=== PATIENT | female | born 1960 | race Caucasian/White ===

== ENCOUNTER 2021-10-30 14:51 | Outpatient (REF) | payer MEDICAID, SELFPAY ==
--- NOTE | ~2021-10-30 | US_ITS ---
EXAMINATION: US DIAGNOSTIC ULTRASOUND BREAST, RIGHT CLINICAL INFORMATION: Diffuse right breast pain. No palpable mass or discharge. Recent outside mammography at [facility], negative. Radiology department will attempt to retrieve outside mammography to allow for comparison in an addendum report. COMPARISON: None. TECHNIQUE: Ultrasound right breast is targeted to the areas of clinical concern with interrogation of the breast both medial and lateral sides. Patient is able to point to the area of concern at time of imaging. Grayscale imaging and color Doppler are performed without and with harmonics. FINDINGS: There is no focal suspicious finding. There is no cystic or solid mass, architectural abnormality, duct ectasia, or edema in the soft tissue planes. Results are discussed with the patient at time of visit. US/US breast RT limited IMPRESSION: Unremarkable right breast ultrasound. ASSESSMENT: BI-RADS 1: Negative RECOMMENDATION: 1. Patient's right mastodynia should managed based on the clinical impression. 2. Radiology department will attempt to retrieve prior outside mammography to allow for comparison. 3. Otherwise, routine annual screening mammography. This patient's information was entered into a reminder system with a target due date for their next mammogram.
== END 2021-10-30 14:52 | disposition home or self-care (01) ==
LOC: HO.MAMMO 14:51
PROVIDERS: Visit Provider Advanced Practice Midwife
DX: N64.4 Mastodynia (principal)
CPT/HCPCS: 76642

== ENCOUNTER 2021-11-02 14:42 | Outpatient (REF) | payer MEDICAID, SELFPAY ==
--- NOTE | ~2021-11-02 | MM_ITS ---
EXAMINATION: BONE DENSITOMETRY CLINICAL INDICATION: Menopause. COMPARISON: None (current study represents initial baseline exam). TECHNIQUE: Using a Adiana DXA System (software version: 13.1) manufactured by [employer], dual-energy x-ray absorptiometry was performed of the lumbar spine and left hip. The images are of good technical quality. Summary results are attached. FINDINGS: AP SPINE L1-L4: BMD 0.836 g/cm2, Z-score -1.4, T-score -2.9, osteoporosis. LEFT FEMUR, NECK: BMD 0.707 g/cm2, Z-score -0.9, T-score -2.4, osteopenia. LEFT FEMUR, TOTAL: BMD 0.744 g/cm2, Z-score -0.9, T-score -2.1, osteopenia. IDENTIFIED RISK FACTORS: Low calcium intake, menopause. HISTORY OF FRACTURE: None listed. MEDICATIONS: None listed. MM/XR DEXA axial skeleton IMPRESSION: 1. DIAGNOSIS: Osteoporosis based on the lowest T-score value of -2.9 in the lumbar spine applying World Health Organization criteria. 2. 10-YEAR FRACTURE RISK PREDICTION, FRAX: According to the guidelines, FRAX calculation should only be performed on patients in the osteopenia bone density category. Therefore, FRAX was not performed on this patient. 3. Treatment Recommendations: NOF guidelines recommend consideration for treatment in postmenopausal women and men age 50 and older presenting with the following: -A hip or vertebral (clinical or morphometric) fracture. -T-score less than or equal to -2.5 at the femoral neck or spine after appropriate evaluation to exclude secondary causes. -Low bone mass at the hip or spine and a 10-year fracture probability by FRAX of greater than or equal to 3% for hip fracture or greater than or equal to 20% for major osteoporotic fracture based on the [place] adapted WHO algorithm. 4. Other Recommendations: All treatment decisions require clinical judgment and consideration of individual patient factors, including patient preferences, comorbidities, previous drug use, risk factors not captured in the FRAX model (e.g. frailty, falls, vitamin D deficiency, increased bone turnover, interval significant decline in bone density) and possible under or overestimation of fracture risk by FRAX. Additional medical evaluation for secondary cause of low bone mineral density may be appropriate. FUTURE SCAN RECOMMENDATION: People with diagnosed cases of osteoporosis or at high risk for fracture should have regular bone mineral density tests. For patients eligible for Medicare, routine testing is allowed once every 2 years. The testing frequency can be increased to one year for patients who have rapidly progressing disease, those who are receiving or discontinuing medical therapy to restore bone mass, or have additional risk factors.
== END 2021-11-02 14:43 | disposition home or self-care (01) ==
LOC: HO.MAMMO 14:42
PROVIDERS: Visit Provider Advanced Practice Midwife
DX: Z13.820 Encounter for screening for osteoporosis (principal); Z78.0 Asymptomatic menopausal state
CPT/HCPCS: 77080

== ENCOUNTER 2024-03-01 11:25 | Outpatient (REF) | payer MEDICAID, SELFPAY ==
[2024-03-01 14:24] LABS: MANUAL DIFF FLAG NO
[2024-03-01 14:49] LABS: Basophils Absolute Auto 0.1 X10*3/uL (0.0-0.2); Basophils Percent Auto 1.3 % (0-2); Eosinophils Absolute Auto 0.1 X10*3/uL (0.0-0.4); Eosinophils Percent Auto 2.3 % (0-4); Hematocrit 40.6 % (37.0-47.0); Hemoglobin 13.4 g/dl (12.0-16.0); Imm Gran Abs Auto 0.02 X10*3/uL (0.00-0.03); Imm Gran Pct Auto 0.3 % (0.0-0.4); Lymphocytes Absolute Auto 1.9 X10*3/uL (1.2-4.9); Lymphocytes Percent Auto 31.8 % (20-40); Mean Corpuscular Hemoglobin 30.7 pg (27.0-33.0); Mean Corpuscular Volume 92.9 fL (80.0-98.0); Mean Platelet Volume 10.8 fL (9.4-12.3); Monocytes Absolute Auto 0.5 X10*3/uL (0.1-1.2); Monocytes Percent Auto 8.6 % (2-11); Neutrophils Absolute Auto 3.4 x10*3/uL (2.0-8.3); Neutrophils Percent Auto 55.7 % (45-73); Platelet Count 270 X10*3/uL (160-400); Red Blood Count 4.37 X10*6/uL (4.20-5.50); Red Cell Distribution Width 12.9 % (11.0-16.0); White Blood Count 6.1 X10*3/uL (4.8-10.8)
[2024-03-01 15:58] LABS: Alanine Aminotransferase 20 U/L (0-31); Anion Gap 11 (12-20); Aspartate Amino Transferase 33 U/L (5-31); Bilirubin Total 1.1 mg/dL (0.0-1.0); Blood Urea Nitrogen 15 mg/dL (9-16); Calcium 9.5 mg/dL (8.4-10.2); Carbon Dioxide 28 mmol/L (22-29); Chloride 104 mmol/L (96-108); Cholesterol 201 mg/dL (<200); Estimated Glomerular Filt Rate > 60; Glucose Random 81 mg/dL (60-115); HDL Cholesterol 62 mg/dL (>40); LDL Cholesterol Calculated 122 mg/dL (<100); Potassium 3.7 mmol/L (3.3-5.1); Sodium 139 mmol/L (135-145); Total Protein 7.4 g/dL (6.5-8.0); Triglycerides 88 mg/dL (<150)
[2024-03-01 16:19] LABS: Alkaline Phosphatase 58 U/L (39-117); TSH reflex Free T4 2.66 uIU/mL (0.32-4.0); Vitamin D 25-OH Total 105.8 ng/mL (>30)
== END 2024-03-01 11:26 | disposition home or self-care (01) ==
LOC: HO.CHCLDS 11:25
PROVIDERS: Visit Provider Family Medicine
DX: M81.0 Age-related osteoporosis without current pathological fracture (principal); E03.9 Hypothyroidism, unspecified
CPT/HCPCS: 36415; 80053; 80061; 82306; 84443; 85025

== ENCOUNTER 2024-06-08 15:02 | Outpatient (AMB) | payer OTHER, SELFPAY ==
--- NOTE | 2024-06-08 15:05 | A.OFFVIS_ITS ---
Vital Signs 06/08/24 15:09 Height 5 ft 5.63 in Weight 117 lb 15.157 oz BMI 19.3 BP 90/60 Blood Pressure Location Rt brachial Position Sitting Pulse 71 Pulse Source Pulse Oximeter Pulse Oximetry (%) 97 Oxygen Delivery Method Room Air Intake Visit Reasons: Osteoporosis, hypothyroidism Intake Note: New patient externally referred by PCP for Osteoporosis and Hypothyroidism. Allergies No Known Allergies Allergy (Verified 06/08/24 15:15) Medication List - Last Reconciled 06/08/24 by Ashutosh Villafuerte MD hydrocortisone 2.5% appl topical levothyroxine mcg PO lorazepam 1 mg PO DAILY PRN triamcinolone acetonide 0.1% topical DAILY HPI Comments Details: The patient is a 64-year-old female presenting with osteoporosis and hypothyroi dism. Osteoporosis was identified approximately ten years ago, evidenced by bone density studies indicating osteopenia. Treatment using both Fosamax and Risidronate was discontinued after musculoskeletal side effects developed. There is no history of adult fractures, but there is familial osteoporosis, which she queries. Her hypothyroidism has been stable, with regular assessments indicating appropriate control, although she reports concern over potential side effects and questions the necessity of continued treatment. First diagnosed in 10 yrs ago with osteopenia . Received treatment in the past with alendronate , from 2022 and risidronate for 2 mos . Not Tolerated treatment well became stiff No history of pathologic fracture or ONJ. - Fosamax (Alendronate): Taken two years ago for two months, discontinued due to stiffness and pain - Risidronate: Taken following Fosamax, for a similar duration, also discontinued due to adverse musculoskeletal effects Has several servings of dietary calcium per day in the form of cereal with milk, cheese, yogurt . Takes Calcium supplement mg daily in divided doses. Takes 1200 IU of Vitamin D daily. The patient consumes a varied diet including cereal with milk, cheese, frozen yogurt, ice cream, and mac and cheese. She takes juxf-rdn-tfsabcb calcium supplements but is informed that high-level dietary intakes may be adequate for her needs. Denies ever using PPI, anticoagulant, antiepileptic or glucocorticoid medication. Does weight bearing exercise 7 days per week in the form of shoulder exercises . - Resistance exercises performed daily for shoulder recovery Fracture history: N Height loss: N INSTRUMENTATION SPECIALIST history: Menarche at age 16 - Menopause at age 48 - nl Denies history of Kidney stones: Has family history of Osteoporosis and hip fracture in mother . UTD on dental cleanings and sees dentist every 6 months. No planned upcoming dental work or extractions. No heavy ETOH use or tabacco use DXA dated 11/02/21 : FINDINGS: AP SPINE L1-L4: BMD 0.836 g/cm2, Z-score -1.4, T-score -2.9, osteoporosis. LEFT FEMUR, NECK: BMD 0.707 g/cm2, Z-score -0.9, T-score -2.4, osteopenia. LEFT FEMUR, TOTAL: BMD 0.744 g/cm2, Z-score -0.9, T-score -2.1, osteopenia. IDENTIFIED RISK FACTORS: Low calcium intake, menopause. HISTORY OF FRACTURE: None listed. MEDICATIONS: None listed. MM/XR DEXA axial skeleton IMPRESSION: 1. DIAGNOSIS: Osteoporosis based on the lowest T-score value of -2.9 in the lumbar spine applying World Health Organization criteria. Labs:T score of -2.6 in LS - Bone density study, 2024: T-score of -2.6, indicating osteoporsis, possibly improved in a different location but cannot compare due to different machines - TSH level: 2.66 (normal) [facility] Medical History (Updated 06/08/24 @ 15:12 by Ashutosh Villafuerte MD) Hypothyroidism Osteoporosis Surgical History (Updated 06/08/24 @ 15:11 by Juani Leyva CMA) H/O repair of right rotator cuff Physical Exam Vital Signs: Last Vital Signs Pulse 71 06/08/24 15:09 BP 90/60 06/08/24 15:09 Pulse Ox 97 06/08/24 15:09 Oxygen Delivery Method Room Air 06/08/24 15:09 BMI result Body Mass Index 19.3 There are no Cushingoid features. Absence of blue sclera. Absence of kyphosis. Thyroid gland is of nl size and weighs 15 gms. There are no thyroid nodules palpated. Lungs CTA. Heart S1 S2 Reg R/R Abdominal exam benign. Muscle strength 5/5 . Examination of spine reveals absence of tenderness on palpation Assessment & Plan Assessment & Plan (1) Osteoporosis: Code(s): M81.0 - Age-related osteoporosis without current pathological fracture Category: Medical Plan: This is a 64-year-old white female with a history of osteoporosis with partial secondary workup. Found to have a high 25 hydroxy vitamin-D level Plan is to complete the secondary workup by checking a phosphorus, SPEP, urine immunofixation, 24 hour urine for calcium and creatinine. Will ensure 1200 mg of calcium and hold vitamin-D supplementation reassessing 25 hydroxy vitamin-D in 2 months. Assuming secondary workup is negative considering patient's age and high risk of fracture, would consider treatment with anabolic initially like Tymlos or Forteo proceeded by an anti resorptive. 1. Osteoporosis I will continue to monitor the patient?s osteoporosis, emphasizing nonpharmacologic strategies such as dietary calcium. Further diagnostics will aid an evidence-based management plan as above . I discussed the past and current management strategies with the patient for osteoporosis and hypothyroidism. We reviewed potential side effects and the need for reassessment of her bone health status, including a calcium metabolism study. I also covered the temporary discontinuation of thyroid therapy to assess its necessity, explaining the need for monitoring thyroid levels and symptoms. Risk versus benefit analysis of stopping or continuing treatment was elaborated, and patient education about follow-up plans was provided. The patient had an opportunity to ask questions regarding treatment plan. The patient expressed understanding and agreement with the above treatment plan. Patient was informed and verbally consented to the use of an ambient scribe for clinic note documentation during this visit. (2) Hypothyroidism: Code(s): E03.9 - Hypothyroidism, unspecified Category: Medical Plan: Appears to be clinically and biochemically euthyroid on 62.5 ug of L-T4 2. Hypothyroidism We will evaluate the necessity of ongoing levothyroxine therapy by clinical and laboratory . Will have patient hold her levothyroxine and recheck TSH, free T4 and anti-peroxidase antibodies in 6 weeks time. Did tell patient should become symptomatic to check the thyroid function studies earlier Orders: Orders Phosphorus 2 Months M81.0 - Age-related osteoporosis without current pathological fracture Protein Electrophoresis, Serum 2 Months M81.0 - Age-related osteoporosis without current pathological fracture Immunofixation, Random Urine 2 Months M81.0 - Age-related osteoporosis without current pathological fracture Vitamin D 25-OH Total 2 Months M81.0 - Age-related osteoporosis without current pathological fracture Thyroid Stimulating Hormone 2 Months E03.9 - Hypothyroidism, unspecified Calcium, 24 Hr Ur 2 Months M81.0 - Age-related osteoporosis without current pathological fracture Creatinine, 24 Hr Group 2 Months M81.0 - Age-related osteoporosis without current pathological fracture Free T4 (Free Thyroxine) 2 Months E03.9 - Hypothyroidism, unspecified Thyroid Peroxidase Antibodies 2 Months E03.9 - Hypothyroidism, unspecified Coding Level of Care Code New Pt Level 4 (66493) Diagnoses Osteoporosis M81.0 Hypothyroidism E03.9
[2024-06-08 15:09] VITALS: BP 90/60; PULSE 71; O2SAT 97; BMI 19.3
--- OUTSIDE RECORDS SUMMARY | 2024-06-08 18:21 | XMS_ITS | Encounter Summary ---
Author Organization [employer] Address [address] [facility] [address] [place] [address] Care Team Providers Care Rug Underlay Machine Operator Name Role Phone Blanca Olmstead MD Primary Care Provider [phone] Encounter Details Date Type Department Care Team ([facility] st Contact Info) Description 01/20/2024 Orders Only [facility] CHC MED & PEDS [address] [place] [address] Jennifer Alejandro MD [address] [place] [address] Inverse psoriasis (Primary Dx) Social History Tobacco Use Types Packs/Day Years Used Date Smoking Tobacco: Never Smokeless Tobacco: Never Alcohol Use Standard Drinks/Week Comments Never 0 (1 standard drink = 0.6 oz pur e alcohol) Depression Answer Date Recorded Patient Health Questionnaire-9 Score 0 06/07/2022 Housing Stability Answer Date Recorded What is your housing situation today? I have doreen vargas 12/09/[address] you li ve. Do you have problems with any of the following? None of the above 12/09/2022 Food Insecurity Answer Date Recorded Within the past 12 months, y ou worried that your food would run out before you got money to buy more: Never True 12/09/2022 Within the past 12 months,th e food you bought just didn't last and you didn't have enough money to get more: Never True Transportation Answer Date Recorded In the past 12 months, has l ack of transportation kept you from medical appts, meetings, work or from getting things needed for daily living? No 12/09/2022 Utilities Answer Date Recorded In the past 12 months, has t he electric, gas, oil or water company threatened to shut off services in your home? No 12/09/2022 Depression Answer Date Recorded Patient Health Questionnaire-2 Score 0 06/07/2022 Comments Unknown Sex and Gender Information Value Date Recorded Sex Assigned at Female 12/24/2021 10:40 AM EDT Legal Sex Female 10:40 AM EDT Gender Identity Female 12/24/2021 10:40 AM EDT Sexual Orientation Straight 12/24/2021 10 :40 AM EDT documented as of this encounter Plan of Treatment Not on file documented as of this encounter Visit Diagnoses Diagnosis Inverse psoriasis- Primary Other psoriasis documented in this encounter Additional Health Concerns Assessment Noted Time PHQ-9 Depression Total Score: 0 06/08/19 23 2:30 PM EDT documented as of this encounter Care Teams Rug Underlay Machine Operator Relationship Specialty Start Date End Date Blanca Olmstead MD [address] [place] [id number] PCP - General Family Medicine 08/29/21 documented as of this encounter
--- OUTSIDE RECORDS SUMMARY | 2024-06-08 18:21 | XMS_ITS | Encounter Summary ---
Author Organization [employer] Address [address] [facility] [address] [place] [address] Care Team Providers Care Steam Conditioning Operator Name Role Phone Blanca Olmstead MD Primary Care Provider [phone] Reason for Visit * Reason Onset Date Comments Med Refill 10/31/2022 Encounter Details Date Type Department Care Team ([facility] st Contact Info) Description 10/31/2022 Telephone [facility] CHC MED & PEDS [address] [place] [address] Blanca Olmstead MD [address] [place] [address] Med Refill Social History Tobacco Use Types Packs/Day Years Used Date Smoking Tobacco: Never Smokeless Tobacco: Never Alcohol Use Standard Drinks/Week Comments Never 0 (1 standard drink = 0.6 oz pur e alcohol) Depression Answer Date Recorded Patient Health Questionnaire-9 Score 0 06/07/2022 Depression Answer Date Recorded Patient Health Questionnaire-2 Score 0 06/07/2022 Comments Unknown Sex and Gender Information Value Date Recorded Sex Assigned at Female 12/24/2021 10:40 AM EDT Legal Sex Female 10:40 AM EDT Gender Identity Female 12/24/2021 10:40 AM EDT Sexual Orientation Straight 12/24/2021 10 :40 AM EDT documented as of this encounter Miscellaneous Notes * Telephone Encounter - Lacy Davalos LPN - 10/31/2022 9:51 AM EDT Medication was sent to [id number] on 09/30/22 #45 with 1 refill. * Telephone Encounter - Alexandra Jeremias - 10/31/2022 9:39 AM EDT Tc from pt requesting medication refill on levothyroxine (Synthroid, Levoxyl) 125 MCG tablet documented in this encounter Plan of Treatment Not on file documented as of this encounter Visit Diagnoses Not on filedocumented in this encounter Additional Health Concerns Assessment Noted Time PHQ-9 Depression Total Score: 0 06/08/19 23 2:30 PM EDT documented as of this encounter Care Teams Steam Conditioning Operator Relationship Specialty Start Date End Date Blanca Olmstead MD [address] [place] [address] PCP - General Family Medicine 08/29/21 documented as of this encounter
--- OUTSIDE RECORDS SUMMARY | 2024-06-08 18:21 | XMS_ITS | Encounter Summary ---
Author Organization [employer] Address [address] [facility] [address] [place] [address] Care Team Providers Care Finished Cloth Examiner Name Role Phone Blanca Olmstead MD Primary Care Provider [phone] Reason for Visit * Reason Onset Date Comments Appointment Request 07/16/2023 Encounter Details Date Type Department Care Team ([facility] st Contact Info) Description 07/16/2023 Telephone [facility] MEDICINE [address] [place] [address] Blanca Olmstead MD [address] [place] [address] Appointment Request Social History Tobacco Use Types Packs/Day Years [...] encounter Miscellaneous Notes * Telephone Encounter - Nichole Painting - 07/16/2023 12:06 PM EDT Tc from pt requesting Derm F/U appt documented in this encounter Plan of Treatment Not on file documented as of this encounter Visit Diagnoses Not on filedocumented in this encounter Additional Health Concerns Assessment Noted Time PHQ-9 Depression Total Score: 0 06/08/19 23 2:30 PM EDT documented as of this encounter Care Teams Finished Cloth Examiner Relationship Specialty Start Date End Date Blanca Olmstead MD [address] [place] [address] PCP - General Family Medicine 08/29/21 documented as of this encounter
--- OUTSIDE RECORDS SUMMARY | 2024-06-08 18:21 | XMS_ITS | Encounter Summary ---
Author Organization [employer] Address [address] [facility] [address] [place] [address] Care Team Providers Care Wool Scourer Name Role Phone Blanca Olmstead MD Primary Care Provider Reason for Visit * Reason Onset Date Comments Triage 07/24/2022 Encounter Details Date Type Department Care Team ([facility] st Contact Info) Description 07/24/2022 Telephone [facility] CHC MED & PEDS [address] [place] [address] Blanca Olmstead MD [address] [place] [address] Triage Social History Tobacco Use Types Packs/Day Years [...] Orientation Straight 12/24/2021 10 :40 AM EDT COVID-19 Exposure Response Date Recorded In the last 10 days, have yo u been in contact with someone who was confirmed or suspected to have Coronavirus/COVID-19? No / Unsure 07/16/2022 10:20 AM EDT documented as of this encounter Miscellaneous Notes * Telephone Encounter - Rhina Croft RN - 07/24/2022 9:43 AM EDT Triage call Pt reports concern that medication, aldendronate, fosamax 70mg could be causing some joint, muscle soreness. Pt reports that exercising has increased lately and thought that this could becausing this soreness. Pt at a certain point felt that it wasn't the physical activity due to the depth of joint pain experienced. Pt did google side effects of medication and believes this could be side effect from this medication. Pt is offered apt but, has to go to today and is leaving tomorrow out of town. Pt then will be gone for 6 weeks. Tele visit with Dr. Smallwood today at 330pm. Pt agreed with this disposition . Pt advised to continue medication until provider says otherwise. Protocol Used: Medication Question Call (Adult) Protocol-Based Disposition: Callback or Video Visit by PCP Today Video visit offered and caller accepted Positive Triage Question: * Caller has NON-URGENT medicine question about med that PCP or specialist prescribed and triager unable to answer question * All higher-acuity triage questions were negative Care Advice Discussed: * Reasons To Call Back - You have any more questions - You become worse * Telephone Encounter - Christina Vicente - 07/24/2022 9:23 AM EDT Symptom: Medication Reaction (alendronate (Fosamax) 70 MG tablet) Outcome: Schedule an urgent appointment (within 1 hour) or talk to a nurse or provider soon Reason: Caller denied all higher acuity questions The caller accepted this outcome documented in this encounter Plan of Treatment Not on file documented as of this encounter Visit Diagnoses Not on filedocumented in this encounter Additional Health Concerns Assessment Noted Time PHQ-9 Depression Total Score: 0 06/08/19 23 2:30 PM EDT documented as of this encounter Care Teams Wool Scourer Relationship Specialty Start Date End Date Blanca Olmstead MD [address] [place] [id number] PCP - General Family Medicine 08/29/21 documented as of this encounter
--- OUTSIDE RECORDS SUMMARY | 2024-06-08 18:21 | XMS_ITS | Encounter Summary ---
Author Organization [facility] [employer] Address [address] [facility] [address] [place] [address] Care Team Providers Care Canoe Inspector Name Role Phone Blanca Olmstead MD Primary Care Provider [phone] Encounter Details Date Type Department Care Team ([facility] st Contact Info) Description 04/08/2024 Orders Only [facility] MEDICINE [address] [place], [place] [id number] Dea Gilliam MD [address] [place] [address] Impingement syndrome of right shoulder region (Primary Dx); Pain in joint of right shoulder Social History Tobacco Use Types Packs/Day Years Used Date Smoking Tobacco: Never Smokeless Tobacco: Never Alcohol Use Standard Drinks/Week Comments Never 0 (1 standard drink = 0.6 oz pur e alcohol) Depression Answer Date Recorded Patient Health Questionnaire-9 Score 9 03/01/2024 Patient Health Questionnaire-9 Score 9 03/01/2024 Last PHQ-9: Questionnaire Data Not on file 0 03/01/2024 Housing Stability Answer Date Recorded What is your housing situation today? I have doreeneder vargas 12/09/[address] you [...] Answer Date Recorded Patient Health Questionnaire-2 Score 4 03/01/2024 Comments Unknown Sex and Gender Information Value Date Recorded Sex Assigned at Female 12/24/2021 10:40 AM EDT Legal Sex Female 10:40 AM EDT Gender Identity Female 12/24/2021 10:40 AM EDT Sexual Orientation Straight 12/24/2021 10 :40 AM EDT documented as of this encounter Plan of Treatment Scheduled Orders Name Type Priority Associated Diagnoses Orde r Schedule XR Shoulder 2+ Views Right Imaging Routine Impingement syndrome of right shoulder region Pain in joint of right shoulder Expected: 04/08/2024, Expires: 04/08/2025 documented as of this encounter Visit Diagnoses Diagnosis Impingement syndrome of right shoulder region- Primary Pain in joint of right shoulder documented in this encounter Additional Health Concerns Assessment Noted Time PHQ-9 Depression Total Score: 9 03/01/19 25 10:56 AM EST documented as of this encounter Care Teams Canoe Inspector Relationship Specialty Start Date End Date Blanca Olmstead MD [address] [place] [address] PCP - General Family Medicine 08/29/21 documented as of this encounter
--- OUTSIDE RECORDS SUMMARY | 2024-06-08 18:21 | XMS_ITS | Data Portability ---
Author Organization LARON Bernardo Suarez [facility], [facility] Address [address] [place] [address] Care Team Providers Care Coach Name Role Phone [facility] Primary Care Provider [phone] Assessment Encounter Date Assessment Date Assessment LastModified by Organization Details LastModified Time 03/30/2024 03/30/2024 A: improved tolerance with AA/PROM's and strengthening ex's. ROM gains since recent cortisone injection. P: Cont to progress per POC as tolerated Not available 03/30/2024 18:31:49 04/02/2024 04/02/2024 A: Pt cont with slightly improved yimi to therex and improved end range flex/er P: Cont to progress per POC as tolerated [email or web address] Not available 04/02/2024 15:48:15 04/06/2024 04/06/2024 A: Cont fatigue with therex noted, however able to complete reps. P: Cont to progress per POC as tolerated [email or web address] Not available 04/06/2024 13:55:47 04/08/2024 04/08/2024 A: improved ROM overall, and decreased subjective pain c/o's. improved ADL function and function mobility. fatigue at end of visit. P: pt leaving for [place] for vacation and will continue with HEP and f/u with MD when returns. Not available 04/08/2024 16:11:11 06/01/2024 06/01/2024 Reason for Visit: 7 months status post right shoulder rotator cuff repair HPI: The patient is a 64-year-old female now 7 months status post right shoulder arthroscopic rotator cuff repair of the supraspinatus, arthroscopic distal clavicle excision, arthroscopic biceps tenodesis, extensive debridement and subacromial decompression with partial acromioplasty performed on 11/10/2023. She did have pain and stiffness issues postoperative day, however, has made substantial improvement. Her pain is minimal at this time and she continues to work on range of motion. Her biggest complaint is actually chronic dry mouth since her surgery. Past medical, surgical, family and social history; Medications, Allergies and 12-point review of systems have been reviewed, updated and charted. Physical Examination: Height and weight as noted in chart. Constitutional: Patient pleasant, well appearing and in NAD. Mental status: Patient is alert and oriented x 4. No short-term memory deficits. Psychiatric: Mood and affect are appropriate. Respiratory: Non-labored breathing. Musculoskeletal: On examination of the right shoulder, she demonstrates active shoulder elevation 160? ? ? and external rotation to 45? ? ?. 5/5 strength in rotator cuff testing. Impression and Plan: 64-year-old female now 7 months status post right shoulder arthroscopic rotator cuff repair of the supraspinatus, arthroscopic distal clavicle excision, arthroscopic biceps tenodesis, extensive debridement and subacromial decompression with partial acromioplasty performed on 11/10/2023. She did have pain and stiffness issues postoperative day, however, has made substantial improvement. Her pain is minimal at this time and she continues to work on range of motion. Her biggest complaint is actually chronic dry mouth since her surgery. I want her to continue working on range of motion and did explain to her that she will likely see improvements in overall range of motion and function up to 1 year postop. Regarding her chronic dry mouth, I am referring her over to RN PACU anesthesia to have this evaluated further and again the recommendations, which the patient requested. I also recommend that she schedule a visit with her PCP in these regards. At this point, I am happy to see her back as needed. All questions and concerns were addressed. I recommended good lifting mechanics moving forward indefinitely. [email or web address] Not available 06/01/2024 10:54:54 Plan of Treatment Reminders Order Date Submit Date Provider Last Modified By Organization Details Last Modified Time Details Appointments None record ed. Lab None record ed. Referral None record ed. Procedures None record ed. Surgeries None record ed. Imaging None record ed. Medication Orders None record ed. Patient TargetsNo targets recorded. Patient InstructionsNo instructions recorded. Reason for Referral None Reported. Problems Name Problem SNOMED Code Status Onset Date Resolution Date Notes Provider Name and Address Organization Details Recorded Time Pain of right shoulder joint 5421720049475 9100 Active 2023 aldair day kajal [facility] 5 10:56:25 Impingement syndrome of right shoulder region 8780037818520 02 Active [facility] 4 10:48:49 Problem Notes None recorded. Procedures Surgical History Date Name Laterality Status Provider Name and Address Organization Details Recorded Time 4 17458 Therapeutic Exercise (1:1) completed Aida Olivas, AMMONIA REFRIGERATION TECHNICIAN [address], [place], [address], [facility] 12/09/2023 15:39:25 4 13538: Hot or Cold Pack completed Aida Olivas, AMMONIA REFRIGERATION TECHNICIAN [address], [place], [address], [facility] 12/09/2023 15:39:25 4 44695: Manual therapy completed Aida Olivas, AMMONIA REFRIGERATION TECHNICIAN [address], [place], [address], [facility] 12/09/2023 15:39:26 4 87042 Therapeutic Exercise (1:1) completed Socorro Gómez, PT [address], [place], [address], [facility] 12/04/2023 16:11:57 4 13297: Hot or Cold Pack completed Socorro Gómez, PT [address], [place], [address], [facility] 12/04/2023 16:11:57 4 80820: Manual therapy completed Socorro Gómez, PT [address], [place], [address], [facility] 12/04/2023 16:11:57 4 96920 Therapeutic Exercise (1:1) completed Socorro Gómez, PT [address], [place], [address], [facility] 12/02/2023 16:05:20 4 79690: Hot or Cold Pack completed Socorro Pollouie, PT [address], [place], [address], [facility] 12/02/2023 16:05:20 4 98102: Manual therapy completed Socorro Pollouie, PT [address], [place], [address], [facility] 12/02/2023 16:05:20 4 88866 Therapeutic Exercise (1:1) completed Socorro Gómez, PT [address], [place], [address], [facility] 11/27/2023 15:22:41 4 55943: Hot or Cold Pack completed Socorro Gómez, PT [address], [place], [address], [facility] 11/27/2023 15:33:58 4 85466: Manual therapy completed Socorro Gómez, PT [address], [place], [address], [facility] 11/27/2023 15:33:45 4 75081 Therapeutic Exercise (1:1) completed Socorro Gómez, PT [address], [place], [address], [facility] 11/24/2023 11:52:15 4 38630: Low complexity PT Eval completed Socorro Gómez, PT [address], [place], [address], [facility] 11/24/2023 11:52:17 4 80167 Therapeutic Exercise (1:1) completed Socorro Pollouie, PT [address], [place], [address], [facility] 10/09/2023 16:48:25 4 62265: Manual therapy completed Socorro Gómez, PT [address], [place], [address], [facility] 10/09/2023 16:48:25 4 08941 Therapeutic Exercise (1:1) completed Socorro Gómez, PT [address], [place], [address], [facility] 10/07/2023 16:54:41 4 30875: Manual therapy completed Socorro Gómez, PT [address], [place], [address], [facility] 10/07/2023 16:54:41 4 19224 Therapeutic Exercise (1:1) completed Socorro Gómez, PT [address], [place], [address], [facility] 10/02/2023 16:30:54 4 06829: Manual therapy completed Socorro Gómez, PT [address], [place], [address], [facility] 10/02/2023 16:30:54 4 46505 Therapeutic Exercise (1:1) completed Socorro Pollouie, PT [address], [place], [address], [facility] 09/25/2023 16:22:26 4 59916: Manual therapy completed Socorro Pollouie, PT [address], [place], [address], [facility] 09/25/2023 16:22:26 4 33852 Therapeutic Exercise (1:1) completed Aida Brendon, AMMONIA REFRIGERATION TECHNICIAN [address], [place], [address], [facility] 09/23/2023 17:10:25 4 79011: Manual therapy completed Aida Olivas, AMMONIA REFRIGERATION TECHNICIAN [address], [place], [address], [facility] 09/23/2023 17:10:32 4 85208 Therapeutic Exercise (1:1) completed Socorro Gómez, PT [address], [place], [address], [facility] 09/18/2023 13:55:00 4 75233: Low complexity PT Eval completed Socorro Gómez, PT [address], [place], [address], [facility] 09/18/2023 13:55:04 4 Sports Shoulder completed Augustina Villalobos PA-C [address], [place], [address], [facility] 06/23/2023 12:50:55 Imaging Results None recorded. Procedure Notes None recorded. Medical Equipment None Reported. Allergies No known drug allergies Medications Name Sig Start Date Stop Date Status Note LastModified by Organization Details LastModified Time meloxicam 15 mg tablet TAKE 1 TABLET EVERY DAY BY ORAL ROUTE WITH MEAL(S) FOR 30 DAYS. 10/08 completed Not Available Not Available Not Available ondansetron HCl 4 mg tablet TAKE 1 TABLET EVERY 6-8 HOURS BY ORAL ROUTE NEEDED, FOR NAUSEA. active Not Available Not Available No t Available aspirin 81 mg tablet,silvio yed release TAKE 1 TABLET(S) EVERY DAY BY ORAL ROUTE BEGINNING THE DAY AFTER SURGERY. TAKE WITH FOOD. active Not Available Not Available No t Available lorazepam 0.5 mg tablet Take one tab 30 minutes prior to MRI and second tab at time of MRI as needed for anxiety 10/08 completed Not Available Not Available Not Available levothyroxi ne 125 mcg tablet TAKE 1/2 TABLET BY MOUTH ONCE DAILY *TAKE 30 MINUTES BEFORE BREAKFAST * active Not Available Not Available No t Available triamcinolo ne acetonide 0.1 % topical ointment active Not Available Not Available Not Available hydrocortis one 2.5 % topical cream active Not Available Not Available Not Available lorazepam 1 mg tablet active Not Available Not Available No t Available methylpredn isolone 4 mg tablets in a dose pack TAKE 6 TABLETS ON DAY 1 DIRECTED ON PACKAGE AND DECREASE BY 1 TAB EACH DAY FOR A TOTAL OF 6 DAYS active Not Available Not Available No t Available naproxen 500 mg tablet TAKE 1 TABLET(S) 2 TIMES A DAY BY ORAL ROUTE FOR 5 DAYS. TAKE WITH FOOD. active Not Available Not Available No t Available calcipotrie ne 0.005 % topical ointment APPLY TO THE AFFECTED AREA(S) TWICE DAILY active Not Available Not Available No t Available oxycodone 5 mg tablet TAKE 1 TABLET BY MOUTH EVERY 4 HOURS NEEDED FOR PAIN active Not Available Not Available No t Available Vitals Date Recorded Body height Body mass index (BMI) Body weight Provider Name and Address Organization Details Last Updated DateTime 06/01/2024 162.56 cm 20.6 kg/m2 25471.08 g EDUARD CRUZ [facility] 06/01/2024 10:38:06 Social History Question Answer Notes LastModified by NearVerse[employer] ion Details LastModified Time Tobacco Smoking Status Never Smoker EDUARD CRUZ [facility] 10/14/2023 15:52:21 How Many Times Per Week Do You Consume Alcohol? Less Than 1 Time Per Week [email or web address] Information not available 10/14/2023 Do You Or Have You Ever Used E-cigarettes Or Vape? Never Used Electronic Cigarettes [email or web address] Information not available 10/14/2023 Which Of Your Hands Is Dominant? Right [email or web address] Information not available 11/26/2023 What Is Your Relationship Status? Single [email or web address] Information not available 10/14/2023 Do You Use Any Illicit Or Recreational Drugs? No [email or web address] Information not available 10/14/2023 Do You Or Have You Ever Used Any Other Forms Of Tobacco Or Nicotine? No [email or web address] Information not available 10/14/2023 Sex: Unknown Functional Status None recorded. Mental Status None recorded. Family History Nothing Reported. Medical History Condition Response Thyroid Problems Y Asthma Y Gynecological HistoryNo gynecological history recorded. Obstetrics History GPAL:G 0 P 0 0 0 0 Past Encounters Encounter ID Performer Location Encounter Start Date Encounter Closed Date Diagnosis/Indication Diagnosis SNOMED-CT Code Diagnosis ICD10 Code Diagnosis Note [id number] Augustina Villalobos PA-C [facility] [address] [place] [address] 06/23/2023 09:54:12 07/11/2023 05:59:50 Pain of right shoulder joint 1373693375 5171550 M25.511 Impingemen t syndrome of right shoulder region 8012226462 09078 M75.41 [id number] Augustina Villalobos PA-C [facility] [address] [place] [address] 09/02/2023 15:34:12 09/22/2023 09:04:41 Anterior to posterior tear of superior glenoid labrum of right shoulder 0081017137 4381500 S43.431A Impingemen t syndrome of right shoulder region 0544020301 52922 M75.41 [id number] Socorro Gómez, PT [facility] [address] [place] [address] 09/18/2023 11:45:52 09/18/2023 13:03:54 Anterior to posterior tear of superior glenoid labrum of right shoulder 0039292656 0236068 S43.431D [id number] Socorro Gómez PT [facility] [address] [place] [address] 09/23/2023 16:25:27 09/23/2023 17:24:17 Anterior to posterior tear of superior glenoid labrum of right shoulder 8861958083 6018991 S43.431D [id number] Socorro Gómez, PT [facility] [address] [place] [address] 09/25/2023 16:14:13 09/25/2023 17:33:15 Anterior to posterior tear of superior glenoid labrum of right shoulder 5412880628 8501852 S43.431D [id number] Socorro Gómez PT [facility] [place] [address] 10/02/2023 16:16:26 10/02/2023 17:21:13 Anterior to posterior tear of superior glenoid labrum of right shoulder 9309672916 9907000 S43.431D [id number] [facility] [address] [place] [address] 10/07/2023 16:14:49 10/07/2023 18:06:29 Anterior to posterior tear of superior glenoid labrum of right shoulder 5187520652 9309473 S43.431D [id number] Socorro Gómez PT [facility] [address] [place] [address] 10/09/2023 16:13:26 10/09/2023 17:25:28 Anterior to posterior tear of superior glenoid labrum of right shoulder 1041777223 7937062 S43.431D [id number] MD [facility] [address] [place] [address] 10/14/2023 15:46:34 11/11/2023 09:14:26 Rupture of rotator cuff of right shoulder 4371580002 6571702 M75.101 Partial th ickness rotator cuff tear 731808180 M75.101 Impingemen t syndrome of right shoulder region 4785892723 44576 M75.41 [id number] [facility] [address] [place] [address] 11/24/2023 09:51:51 11/24/2023 10:57:45 Rupture of rotator cuff of right shoulder 2609211441 9479772 M75.863 [id number] TOOTIE Mckenna [address] floor [address] [facility] [address] 11/26/2023 12:56:46 12/11/2023 14:38:53 Postoperative care 220378206 Z48.89 [id number] Socorro Gómez PT [facility] [address] [place] [address] 11/27/2023 15:18:10 11/27/2023 16:30:23 Rupture of rotator cuff of right shoulder 2157313640 6345644 M75.268 [id number] Socorro Gómez PT [facility] [address] [place] [address] 12/02/2023 15:56:11 12/02/2023 16:40:50 Rupture of rotator cuff of right shoulder 2494968453 5669819 M75.527 [id number] Socorro Gómez PT [facility] [address] [place] [address] 12/04/2023 15:49:51 12/04/2023 16:47:43 Rupture of rotator cuff of right shoulder 6098082234 [id number] M75.779 [id number] Socorro Gómez PT [facility] [address] [place] [address] 12/09/2023 15:53:02 12/09/2023 16:53:13 Rupture of rotator cuff of right shoulder 1193781295 6214219 M75.384 [id number] Socorro Gómez PT [facility] [address] [place] [address] 12/11/2023 15:46:55 12/11/2023 16:46:26 Rupture of rotator cuff of right shoulder 9007608100 4880200 M75.136 [id number] Socorro Gómez PT [facility] [address] [place] [address] 12/16/2023 15:53:25 12/16/2023 17:09:07 Rupture of rotator cuff of right shoulder 8471688535 [id number] M75.652 [id number] Socorro Gómez PT [facility] [address] [place] [address] 12/18/2023 15:45:35 12/18/2023 16:52:32 Rupture of rotator cuff of right shoulder 8225664377 5726483 M75.219 [id number] Socorro Gómez PT [facility] [address] [place] [address] 12/23/2023 15:52:43 12/23/2023 17:01:26 Rupture of rotator cuff of right shoulder 9103485923 [id number] M75.429 [id number] Socorro Gómez PT [facility] [address] [place] [address] 12/25/2023 15:49:26 12/25/2023 17:05:58 Rupture of rotator cuff of right shoulder 4582190692 [id number] M75.472 [id number] Socorro Gómez PT [facility] [address] [place] [address] 12/30/2023 15:48:13 12/30/2023 16:41:08 Rupture of rotator cuff of right shoulder 9384229349 [id number] M75.689 [id number] Socorro Gómez, PT [facility] [address] [place] [address] 01/01/2024 15:53:52 01/01/2024 17:12:27 Rupture of rotator cuff of right shoulder 0897093617 [id number] M75.318 [id number] Socorro Gómez, PT [facility] [address] [place] [address] 01/06/2024 15:51:23 01/06/2024 17:10:13 Rupture of rotator cuff of right shoulder 6236935301 [id number] M75.900 [id number] Socorro Gómez PT [facility] [address] [place] [address] 01/08/2024 15:48:00 01/08/2024 17:07:22 Rupture of rotator cuff of right shoulder 3109395997 [id number] M75.572 [id number] Socorro Gómez PT [facility] [address] [place] [address] 01/13/2024 15:50:26 01/13/2024 16:56:57 Rupture of rotator cuff of right shoulder 4478635956 4094493 M75.724 [id number] Alexx Berry MD [address] [place] [address] 01/15/2024 12:56:25 02/11/2024 08:26:50 Full thickness rotator cuff tear 220095075 M75.121 Surgical follow-up 95204 4000 Z48.89 [id number] Socorro Gómez, PT [facility] [address] [place] [address] 01/15/2024 15:51:21 01/15/2024 17:04:18 Rupture of rotator cuff of right shoulder 3229440144 [id number] M75.498 [id number] Socorro Gómez, PT [facility] [address] [place] [address] 01/20/2024 15:49:18 01/20/2024 16:53:00 Rupture of rotator cuff of right shoulder 7561229711 [id number] M75.518 [id number] Socorro Rico, PT [facility] [address] [place] [address] 02/12/2024 15:20:46 02/12/2024 17:04:36 Rupture of rotator cuff of right shoulder 8463874330 0255753 M75.613 [id number] Socorro Rico, PT [facility] [address] [place] [address] 02/26/2024 15:55:18 02/26/2024 17:44:54 Rupture of rotator cuff of right shoulder 2692191855 [id number] M75.456 [id number] Socorro Rico, PT [facility] [address] [place] [address] 03/02/2024 15:47:41 03/02/2024 17:08:51 Rupture of rotator cuff of right shoulder 2032110761 [id number] M75.241 [id number] Socorro Rico, PT [facility] [address] [place] [address] 03/09/2024 14:53:26 03/09/2024 15:48:43 Rupture of rotator cuff of right shoulder 6361087868 [id number] M75.000 [id number] Socorro Rico, PT [facility] [address] [place] [address] 03/11/2024 15:50:31 03/11/2024 17:25:59 Rupture of rotator cuff of right shoulder 7918600079 2301593 M75.027 [id number] TOOTIE Clark 3[address] [place] [address] 03/16/2024 10:08:51 03/26/2024 13:08:18 Pain of right shoulder joint 5802083369 4308753 M25.511 Postoperative visit 1836 01724 Z48.89 Impingemen t syndrome of right shoulder region 3546632830 45348 M75.41 Osteoarthr itis of joint of right shoulder region 3342379935 59528 M19.941 [id number] Socorro Rico, PT [facility] [address] [place] [address] 03/18/2024 11:52:41 03/18/2024 13:19:39 Rupture of rotator cuff of right shoulder 4699017573 [id number] M75.874 [id number] Socorro Rico, PT [facility] [address] [place] [address] 03/30/2024 16:20:23 03/30/2024 17:17:39 Rupture of rotator cuff of right shoulder 6386932837 [id number] M75.596 [id number] Socorro Gómez, PT [facility] [address] [place] [address] 04/02/2024 14:53:27 04/02/2024 15:56:47 Rupture of rotator cuff of right shoulder 6747374334 [id number] M75.631 [id number] Socorro Barneslouie, PT [facility] [address] [place] [address] 04/06/2024 12:52:11 04/06/2024 13:43:45 Rupture of rotator cuff of right shoulder 8547802920 [id number] M75.314 [id number] Socorro Barneslouie, PT [facility] [address] [place] [address] 04/08/2024 15:22:52 04/08/2024 16:01:16 Rupture of rotator cuff of right shoulder 2387940085 [id number] M75.602 [id number] MD DONNA [facility] [address] [place] [address] 06/01/2024 10:22:49 06/01/2024 12:54:14 Surgical follow-up 136174523 Z48.89 Health Concerns Section Related Observation LastModified by Organization Detai ls LastModified Time None Recorded Concern Status LastModified by Organization Details LastModified Time None Recorded Advance Directives Directive None Recorded Payers Encounter Date Sequence Insurance Name Policy Number Policy Guerra Covered Member ID Guerra Member ID Guarantor Name 03/30/2024 1 [facility] [employer] - DIRECT CONNECTORCARE TYPE I (HMO) [id number] Caity Coppola [id number] Caity Coppola 04/02/2024 1 [facility] - DIRECT CONNECTORCARE TYPE I (HMO) [id number] Caity Coppola [id number] Caity Coppola 04/06/2024 1 [facility] - DIRECT CONNECTORCARE TYPE I (HMO) [id number] Caity Coppola [id number] 01 Caity Coppola 04/08/2024 1 [facility] - DIRECT CONNECTORCARE TYPE I (HMO) [id number] Caity Coppola [id number] Caity Coppola 06/01/2024 1 [facility] - DIRECT CONNECTORCARE TYPE I (HMO) [id number] Caity Coppola [id number] Caity Coppola Notes Date Note Type Note Provider Name and Address Organization Details Recorded Time 03/30/2024 text/html cortisone injection seems to have helped. decrease shoulder pain and increased shoulder ROM. Socorro Gómez, PT [address], [place], [address], [facility] 03/30/2024 18:32:11 04/02/2024 text/html Pt reports the shoulder is moving more but feels like progress has plateaued Aida Olivas, AMMONIA REFRIGERATION TECHNICIAN [address], [place], [address], [facility] 04/02/2024 16:14:02 04/06/2024 text/html Pt reports sh has been less sore since getting cortisone shot. Rachel Elena, AMMONIA REFRIGERATION TECHNICIAN [address], [place], [address], [facility] 04/06/2024 13:56:38 04/08/2024 text/html still feels improved overall since cortisone injection. I just wish my shoulder was back to pre surgery and pre injury good. Socorro Gómez, PT [address], [place], [address], [facility] 04/08/2024 16:11:26 OBGyn Episode No OBEpisode recorded.
--- OUTSIDE RECORDS SUMMARY | 2024-06-08 18:21 | XMS_ITS | Clinical Summary ---
Author Organization [employer] Address [address] [facility] [address]t [place] [address] Care Team Providers Care Reverse Unit Operator Fisherman Name Role Phone Blanca Olmstead MD Primary Care Provider [phone] Allergies Active Allergy Reactions Criticality Noted Date Comments Azithromycin Shortness of breath High 04/25/2016 Medications cholecalciferol (Vitamin D-3) 50 MCG (1999 UT) tablet Take by mouth daily. Active calcium carbonate (Os-Sloan) 1250 (500 Ca) MG tablet Take 2 tablets by mouth in the morning. 1 Active nitroglycerin (Rectiv) 0.4 % (w/w) rectal ointment Insert 1 inch (1 Application.) into the rectum every 12 (twelve) hours. 30 g 3 Active Lidocaine, Anorectal, 5 % cream Apply 1 Application topically 2 times daily. 113 g 4 Active triamcinolone (Kenalog) 0.1 % creamIndications :Inverse psoriasis Apply topically if needed in the morning and at bedtime (pain and swelling). 30 g 2 4 Active calcipotriene (Dovonex) 0.005 % ointmentIndicati ons:Inverse psoriasis Apply topically 2 times daily. 60 g 2 4 Active LORazepam (Ativan) 1 MG tablet Take 1 tablet (1 mg) by mouth 1 (one) time if needed for anxiety. 1 tablet 5 Active levothyroxine (Synthroid, Levoxyl) 125 MCG tabletIndication s:Hypothyroidism , unspecified type TAKE 1/2 TABLET BY MOUTH ONCE DAILY *TAKE 30 MINUTES BEFORE BREAKFAST* 45 tablet 1 5 Active levothyroxine (Synthroid, Levoxyl) 125 MCG tabletIndication s:Hypothyroidism , unspecified type TAKE 1/2 TABLET BY MOUTH ONCE DAILY *TAKE 30 MINUTES BEFORE BREAKFAST* 45 tablet 1 5 Active Active Problems Problem Noted Date Diagnosed Date Physical exam, annual 03/01/2024 Assessment & Plan (03/01/2024 2:09 PM EST): 63 y.o. female here for annual physical examination Reviewed BMI and BP with patient. Nutritional recommendations: Recommended to decrease soda and sugary beverage consumption. Recommended at least 20 g per meal of protein to assist with satiety. Exercise recommendations: Recommended at least 150 min/week of moderate intensity exercise. 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 Actinic keratosis 01/06/2024 Pain in joint of right shoulder 06/23/2023 Impingement syndrome of right shoulder region Assessment & Plan (03/03/2024 3:12 PM EST): Patient with persistent symptoms despite surgeon, unable to lift above 45 degrees concern of impingement vs postsurgical adhesion/fibrosis or scaring causing issues with her mobility and pain, will send to MRI and patient will want second opinion, [facility] Hemorrhoids 02/21/2023 Assessment & Plan (02/27/2023 10:22 AM EST): Doorknob compliant, requesting meds for hemorroid flare Rhinitis, allergic 02/26/2022 Osteoporosis without current pathological fractu re 02/26/2022 Overview (02/26/2022): DEXA 10/08/21: -2.9 lumbar osteoporosis. Started alendronate 02/26/22 Assessment & Plan (03/01/2024 11:21 AM EST): Ordering lab work for further evaluation and referral to Endocrinology. Assessment & Plan (08/29/2022 11:03 AM EDT): Patient with muscle stiffness with medication. Will substitute alendronate for 5 mg daily of risedronate daily and refer to building operator. If no improvement or recurrent of symptoms will consider salicyilic acid infusions. Assessment & Plan (02/26/2022 4:37 PM EST): Will start with alendronate, continue vitamin D & calcium. Discussed side effects w/ patient and rtc in 6 months. Repeat DEXA in 1 yr. Asthma 02/26/2022 Overview (02/26/2022): Not an issue, does not need inhalers Hypothyroidism 11/07/2008 Overview (02/26/2022): Consultants: Dr. Barton History/summary: Hypothyroidism with negative antibodies; previously controlled on synthroid 50 mcg Medications: levothyroxine 62.5 mcg (increased from 50 mcg 06/06/2014) Monitoring: TSH 2.26 06/01/2014 on levothyroxine 50 mcg Plan: Currently controlled. Continue above medication regimen. Assessment & Plan (03/01/2024 11:21 AM EST): Ordering lab work for further evaluation. Resolved Problems Problem Noted Date Diagnosed Date Resolved Date Leg pain, anterior, left 02/21/202307/2024 Assessment & Plan (02/27/2023 10:23 AM EST): Patient presents visit with complaints of pain on L leg with radiation towards hip and lower extremities. Normal exam, will refer to ortho. Musculoskeletal pain 07/24/2022 023 Chronic cough 01/24/2011 02/21/2023 Overview (02/26/2022): Dr Sonu Mckee, 02/14/11, CT chest- focal bronchiectasis RML and RLL , AFB - neg x 2 CT chest 06/10/11 - stable bronchiectasis with mucous plugging; repeat CT in [address] Mckee, saw Dr Mckee 07/15/12 - cough mild and unchanged, check PFT Abnormal liver function tests 02/12/2009 02/26/2022 Overview (02/26/2022): elevated transaminases , ultrasound wnl 10/28/08 and spep,ipep, hepatitis profile, ferritin , kalyan, antimitochondrial ab,ceruplasmin, anti smooth muscle ab Encounters Date Type Department Care Team Description 04/08/2024 Orders Only [facility] MED[facility] [address] [place] [address] Dea Gilliam MD Impingement syndrome of right shoulder region (Primary Dx); Pain in joint of right shoulder 04/08/2024 [facility] [address] [place] [address] Blanca Olmstead MD MRI SHOULDER DENIED 04/07/2024 [facility]phone [facility] [address] [place] [address] Blanca Olmstead MD MRI SHOULDER ORDER 04/05/2024 Orders Only [facility] [address] [place] [address] Dulce Madden MD Hypothyroidism, unspecified type 04/05/2024 Refill [facility] [address] [place], [place] [phone] Blanca Olmstead MD Hypothyroidism, unspecified type 03/18/2024 Telephone [facility] [address] [place], [place] [phone] Blanca Olmstead MD derm recall from Last 3 Months Immunizations Name Administration Dates Next Due Hep A, Adult 06/16/2013 Hep B, Unspecified 06/18/2005 Influenza, IIV3, injectable 10/30/2011 Influenza, Unspecified 01/14/2005,01/01/2005 MMR 12/22/2001,11/19/2001 Meningococcal MPSV4 11/29/2004 Pneumococcal Polysaccharide PPSV23 08/05/2012, Td (adult), 5 Lf tetanus tox oid, preservative free, adsorbed 07/02/1999,07/17/1993 Tdap 10/31/2010 Typhoid, ViCPs 06/16/2013 Family History Medical History Relation Name Comments Colon cancer Brother Relation Name Status Comments Brother Social History Tobacco Use Types Packs/Day Years Used Date Smoking Tobacco: Never Smokeless Tobacco: Never Tobacco Cessation:Counseling Given: Not Answered Alcohol Use Standard Drinks/Week Comments Never 0 [...] Orientation Straight 12/24/2021 10 :40 AM EDT Last Filed Vital Signs Vital Sign Reading Time Taken Comments Blood Pressure 115/64 03/01/2024 10:41 AM EST Pulse 68 03/01/2024 10:41 AM EST Temperature 36.8 ??C (98.2 ??F) 03/01/2024 10:[address] Respiratory Rate 20 03/01/2024 10:41 AM EST Oxygen Saturation 98% 03/01/2024 10:41 AM EST Inhaled Oxygen Concentration - - Weight 56.3 kg (124 lb 3.2 oz) 03/01/2024 10:41 AM EST Height 167.6 cm (5' 6 ) 03/01/2024 10:41 AM EST Body Mass Index 20.05 03/01/2024 10:41 AM EST Plan of Treatment Health Maintenance Due Date Last Done Comments CT Colonography 1962 Colonoscopy 1962 Colorectal Cancer Screening 1962 FIT DNA/Cologuard 1962 FIT 1962 FOBT 1962 HIV Screening 1962 Sigmoidoscopy 1962 Hepatitis C Screening 1980 Pneumococcal Vaccine: 50+ Years (2 of 2 - PCV) 08/05/2013 08/05/2012, 07/25/1995 Mammogram 10/08/2022 10/08/2021, 05/27, 03/09/2013, Additional history exists SDOH Screening 06/08/2023 06/07/2022 Influenza Vaccine (#1) 2024 2, 01/14/2005, 01/01/2005 Postponed from 10/26/2023 (Patient Refused) Depression Monitoring 08/29/2024 03/01/2024, 025 Alcohol/Substance Use Screening 03/01/2025 03/01/2024 COVID-19 Vaccine ( - season) 2025 Postponed from 10/26/2023 (Patient Refused) DTaP/Tdap/Td Vaccines (2 - Td or Tdap) 03/01/2025 10/31/2010, 07/02/1999, 07/17/1993 Postponed from 10/31/2020 (Patient Refused) Depression Screening 03/01/2025 03/01/2024, 03/01/19 Hepatitis B Vaccines (2 of 3 - 19+ 3-dose series) 03/01/2025 06/18/2005 Postponed from 07/16/2005 (Patient Refused) RSV Patients and Patients Aged 60 years or older (1 - Risk 60-74 years 1-dose series) 03/01/2025 Postponed from 2022 (Patient Refused) Tobacco Screening 03/01/2025 03/01/2024 Zoster Vaccines (1 of 2) 03/01/2025 Pos tponed from 2012 (Patient Refused) Cervical Cancer Screening 09/25/2026 HPV/Cotest 09/25/2026 09/25/2021 Pap Smear 09/25/2026 09/25/2021, 09/25/2021 Meningococcal Vaccine Aged Out 11/29/2004 No graciela peggy eligible based on patient's age to complete this topic Hepatitis A Vaccines Aged Out 06/16/2013 No long er eligible based on patient's age to complete this topic HIB Vaccines Aged Out No longer eligi ble based on patient's age to complete this topic HPV Vaccines Aged Out No longer eligi ble based on patient's age to complete this topic IPV Vaccines Aged Out No longer eligi ble based on patient's age to complete this topic RSV under 20 months Aged Out No longe r eligible based on patient's age to complete this topic Rotavirus Vaccines Aged Out No longer eligible based on patient's age to complete this topic Procedures Procedure Name Priority Date/Time Associated Diagnosis Comments AMB REFERRAL TO ORTHOPAEDIC SURGERY Routine 06/01/2024 Impingement syndrome of right shoulder region BD DEXA AXIAL Routine 04/01/2024 Osteoporosis without current pathological fracture, unspecified osteoporosis type BI MAMMOGRAM SCREENING BILATERAL Routine 10/08/2021 THINPREP IMAGING PAP AND HPV MRNA E6/E7, WITH CT/NG, TRICHOMONAS Routine 09/25/2021 3:47 PM EDT PAP SMEAR Routine 09/25/2021 12:00 AM EDT from Last 3 Months or Most Recently Relevant to Health Maintenance Results * Referral to Orthopaedic Surgery (06/01/2024) us Blanca Olmstead MD OUTPATIENT REFERRAL ORDERABLE S Final Result * BD DEXA Axial (04/01/2024) Anatomical Region Laterality Modality Body Radiographic Dori ging us Blanca Olmstead MD IMG DXA PROCEDURES Final Resu lt * BI Mammogram Screening Bilateral (10/08/2021) Anatomical Region Laterality Modality Breast Bilateral Mammography 10/08/2021 Narrative 02/26/2022 4:14 PM EST BI-RADS 2 (10/08/21) us Historical Provider MD HARKINS BI PROCEDURES Final R esult * THINPREP TIS PAP AND HPV mRNA E6/E7, CT/NG, TRICH (09/25/2021 3:47 PM EDT) Chlamydia trachomatis RNA, TMA, Urogenital NOT DETECTED NOT DETECTED [facility] Clinical Information: None given [facility] COMMENT SEE COMMENT [facility] Comment: The analytical performance characteristics of this assay, when used to test SurePath(TM) specimens have been determined by [employer]. The modifications have not been cleared or approved by the FDA. This assay has been validated pursuant to the CLIA regulations and is used for clinical purposes. ?? For additional information, please refer to https://education.Knowledgestreem/faq/ITQ993 (This link is being provided for information/ educational purposes only.) ?? COMMENT SEE COMMENT [facility] Comment: EXPLANATORY NOTE: ? The Pap is a screening test for cervical cancer. It is ?? not a diagnostic test and is subject to false negative ?? and false positive results. It is most reliable when a ?? satisfactory sample, regularly obtained, is submitted ?? with relevant clinical findings and history, and when ?? the Pap result is evaluated along with historic and ?? current clinical information. ?? COMMENT: This Pap test has been evaluated with computer assisted technology. [employer] [facility] Customer Care Professional: SEE COMMENT [facility] Comment: MAA, CT(ASCP) CT screening location: [address] ??[id number] HPV nRNA E6/E7 Not Detected Not Detected [employer] [facility] Comment: Methodology: Leather Seasoner-Mediated Amplification This assay detects E6/E7 viral messenger RNA (mRNA) from 14 high-risk HPV types (16,18,31,33,35,39,45,51,52,56,58,59,66,68). ? Cervical sources are required for HPV testing. If a vaginal source from a patient who has had a total hysterectomy with removal of cervix was ?? submitted, please contact the testing laboratory for alternative testing options. ?? For additional information, please refer to http://[employer].Knowledgestreem/faq/VYW975h0 (This link if provided for information/ educational purposes only.) Interpretation/Res ult: SEE COMMENT [facility] Comment: Negative for intraepithelial lesion or malignancy. Atrophic pattern; predominantly parabasal cells LMP: NONE GIVEN [facility] Neisseria gonorrhoeae RNA, TMA, Urogenital NOT DETECTED NOT DETECTED [facility] Prev. BX: NONE GIVEN [facility] Prev. PAP: NONE GIVEN [facility] SOURCE: None given [facility] Statement Of Adequacy: SATISFACTORY FOR EVALUATION Age and/or menstrual status not provided [facility] Trichomonas vaginalis, QL, TMA, PAP Vial NOT DETECTED NOT DETECTED [facility] Comment: The analytical performance characteristics of this assay have been determined by [facility]. The modifications have not been cleared or approved by the FDA. This assay has been validated pursuant to the CLIA regulations and is used for clinical purposes. ?? For additional information, please refer to http://[employer].Knowledgestreem/ faq/Trichomonastma (This link is being provided for information/ educational purposes only.) ?? 09/25/2021 3:47 PM EDT Ni Major CNM LAB PATHOLOGY ORDERABLES Final Result Performing Organization Address [facility]/ZIP Co de Phone Number [facility] [address] * Pap Smear (09/25/2021 12:00 AM EDT) Swab Historical Provider MD LAB CYTOLOGY ORDERABLES F inal Result Performing Organization Address [facility] Co de Phone Number EXTERNAL LAB from Last 3 Months or Most Recently Relevant to Health Maintenance Insurance [facility] Care Teams Reverse Unit Operator Fisherman Relationship Specialty Start Date End Date Blanca Olmstead MD [address] [place] [id number] PCP - General Family Medicine 08/29/21
== END 2024-06-08 16:06 | disposition home or self-care (01) ==
LOC: HO.ENCR 15:02
PROVIDERS: PCP Family Medicine; Visit Provider Internal Medicine Endocrinology, Diabetes & Metabolism
DX: M81.0 Age-related osteoporosis without current pathological fracture (principal); E03.9 Hypothyroidism, unspecified
CPT/HCPCS: 99204

== ENCOUNTER → 2024-06-08 15:02 | Outpatient (BNVA) | payer OTHER, SELFPAY | PROVIDERS: PCP Family Medicine; Visit Provider Internal Medicine Endocrinology, Diabetes & Metabolism | DX: M81.0 Age-related osteoporosis without current pathological fracture (principal); E03.9 Hypothyroidism, unspecified | CPT/HCPCS: 99202 ==

== ENCOUNTER 2024-09-24 11:49 | Outpatient (REF) | payer OTHER, SELFPAY ==
--- OUTSIDE RECORDS SUMMARY | 2024-09-24 11:53 | XMS_ITS | Encounter Summary ---
Author Organization [employer] Address [address] [facility] 7 [place] [address] Care Team Providers Care Printing Equipment Mechanic Apprentice Name Role Phone Blanca Olmstead MD Primary Care Provider [phone] Encounter Details Date Type Department Care Team ([facility] st Contact Info) Description 04/08/2024 Orders Only [facility] MEDICINE [address] [place], [place] [phone] Dea Gilliam MD [address] [place] [address] Impingement syndrome of right shoulder region (Primary [...] documented as of this encounter Care Teams Printing Equipment Mechanic Apprentice Relationship Specialty Start Date End Date Blanca Olmstead MD [address] [place] [address] PCP - General Family Medicine 08/29/21 documented as of this encounter
--- OUTSIDE RECORDS SUMMARY | 2024-09-24 11:53 | XMS_ITS | Clinical Summary ---
Author Organization [facility] Address [address] [place] [phone] Phone Care Team Providers Care Punch Out Crew Member Name Role Phone Blanca Olmstead MD Primary Care Provider [phone] Allergies Active Allergy Reactions Criticality Noted Date Comments Erythromycin Hives Medium 05/02/2014 Medications levothyroxine (SYNTHROID, LEVOTHROID) 125 MCG tablet Take 125 mcg by mouth every morning. Take half tab daily as per PCP's instructions Active calcium carbonate (OS-CHAPITO) 1,250 mg (500 mg elemental) tablet Take 2 tablets by mouth daily. 1 Active cholecalciferol (VITAMIN D3) 2,000 unit tablet Take by mouth daily. Active loratadine (CLARITIN) 10 mg tablet Take by mouth daily as needed. 1 Active Active Problems Problem Noted Date Diagnosed Date Age-related osteoporosis wit hout current pathological fracture 01/24/2023 Assessment & Plan (03/25/2023 12:26 PM EST): In addition to the risk factors indicated in the HPI she was found to have decreased calcium intake so she needs to increase her calcium intake. The problem is that she is taking adequate calcium carbonate so it must be a problem with absorption. I suggested switching to calcium citrate and to still continue taking twice a day with food. She can also increase her dairy intake and greens which have a higher component of calcium. She has close to moderate osteoporosis and would benefit from weightbearing exercises and antiresorptive medications. She has tried the oral bisphosphonates but could not tolerate it. So it is unclear to me if she use zoledronic acid which is an IV bisphosphonate if she is not going to have the same symptoms. It is possible that she will and then may have problems with this medication because once is infused you cannot stop it and it remains in the bones for up to a year. So she could potentially use of Prolia subcutaneous infusion which is every 6 months but this also has adverse effects and it is unclear that the patient would tolerate them. If she were to use Prolia and could not tolerate the medication and had to stop it normally we would recommend using alendronate for a period of a year. But she cannot tolerate alendronate so she would not use anything. Stopping Prolia is associated with decreased bone mineral density. But I think it would not decrease any further than what she was at before in terms of bone mineral density level. I also informed her about other anabolic hormones such as Forteo, Tymlos and Evenity these are all injectable medications but I do not think the insurance will cover the since she has not tried Prolia or even the IV bisphosphonate zoledronic acid. Although my feeling is that possibly she will not tolerate zoledronic acid because it is a bisphosphonate. After discussion we have decided to proceed with Prolia administration but the patient is going to require prior authorization and this has been requested. Assessment & Plan (01/24/2023 12:17 PM EST): This is a patient who was diagnosed with osteopenia in 2018 progressed to osteoporosis in 2021. Her risk factors include family history, age and menopause. She has had maybe 0.25 inch decrease in height she has not had any fractures. She has tried both alendronate and risedronate and has not been able to tolerate the medication. She is taking adequate calcium and vitamin D supplements we believe but we have to do biochemical work-up to confirm this. At this point the question is whether antiresorptive medication can she use. It is unlikely that she will be able to tolerate zoledronic acid otherwise known as Reclast which is an IV infusion of bisphosphonates. She has not tolerated oral bisphosphonate so I do not see where she would tolerate the IV form. Rank ligand antagonist such as Prolia or denosumab could potentially be used but with this medication she will have to come to the clinic every 6 months for injections and if she ever needed to stop the medication she will need to go on to using an oral bisphosphonate to prevent decrease of bone mineral density. The problem is she cannot tolerate the oral bisphosphonates so if she ever has to stop this medication she will start decreasing bone mineral density quite rapidly at least 8 months after the last injection and by a year later she will be back down to her original bone mineral density. So this does not seem to be a very good choice either. However with this medication the good thing is that you can use it up to 10 years. Other medications include anabolic hormones such as Forteo and Tymlos which is administer nightly via a subcutaneous injection. Lastly this Evenity which is administer monthly in the clinic. However the anabolic hormones are quite expensive and I do know that the insurance will cover it. At this point I am going to do biochemical work-up for evaluation of secondary causes of osteoporosis. In addition to calcium and vitamin D the patient can do weightbearing exercises that will help. If she does not want to use any of the antiresorptive or anabolic hormones she can consider estrogen and progesterone which she will have to get from her wool sorter because I do not prescribe this or she can use raloxifene otherwise known as Evista which is a SERM. If she chooses not to use any medications then the only thing she can do is just do weightbearing exercise and take calcium and vitamin D and hope that the bone mineral density does not decrease rapidly. Immunizations Immunization Administration Dates Next Due Hepatitis A, Adult 06/16/2013 Hepatitis B, unspecified formulation 06/18/2005 Influenza Trivalent w/ Preservative IM 2 Influenza, Unspecified Formulation 01/14/2005, MMR 12/22/2001,11/19/2001 Meningococcal MPSV4 11/29/2004 Pneumococcal polysaccharide PPSV23 08/05/2012, Td (adult) 5 Lf Tetanus Toxoid, PF, Adsorbed 09/1999,07/17/1993 Tdap 10/31/2010 Typhoid, ViCPs 06/16/2013 Family History Medical History Relation Comments Alcohol abuse Father Dementia Father Emphysema Father Osteoporosis Maternal Grandmother Osteoporosis Mother Relation Status Comments Father Maternal Grandmother Mother Social History Tobacco Use Types Packs/Day Years Used Date Smoking Tobacco: Never Smokeless Tobacco: Never Tobacco Cessation:Counseling Given: Not Answered Alcohol Use Standard Drinks/Week Comments Not Currently 0 (1 standard drink = 0.6 oz pur e alcohol) Education Answer Date Recorded Are you interested in more education? Not on tiera e 06/21/2022 Are you concerned about learning? Not on file 06/21/2022 No 06/21/2022 No 06/21/2022 Digital Access Answer Date Recorded No 07/22/2022 No 07/22/2022 Reliable internet access at home? Not on file 07/22/2022 Device with a working camera? Not on file Intimate Partner Violence Answer Date R ecorded Are you denied basic needs s uch as food, clothing, or medical care? No 06/09/2022 In the past 12 months have y ou been in a relationship with a person who hurts, threatens, or tries to control you? No 06/09/2022 Are you denied basic needs s uch as food, clothing, or medical care? No 06/09/2022 In the past 12 months have y ou been in a relationship with a person who hurts, threatens, or tries to control you? No 06/09/2022 Comments No Sex and Gender Information Value Date Recorded Sex Assigned at Not on file Legal Sex Female 9:15 AM EST Gender Identity Not on file Sexual Orientation Not on file Last Filed Vital Signs Vital Sign Reading Time Taken Comments Blood Pressure 104/68 03/25/2023 12:01 PM EST Pulse 98 03/25/2023 12:01 PM EST Temperature 36.7 C (98 F) 01/24/2023 11:23 AM EST Respiratory Rate 17 06/09/2022 4:01 PM EDT Oxygen Saturation 98% 03/25/2023 12:01 PM EST Inhaled Oxygen Concentration - - Weight 55.3 kg (122 lb) 03/25/2023 12:01 PM EST Height 163 cm (5' 4.17 ) 03/25/2023 12:01 PM EST Body Mass Index 20.83 03/25/2023 12:01 PM EST Plan of Treatment Health Maintenance Due Date Last Done Comments LIPID PANEL 1962 DEPRESSION SCREENING 1974 HEPATITIS C SCREENING 1980 HIV ONE-TIME SCREENING (18-6 5 YEARS) 1980 PAP SMEAR 1983 MAMMOGRAM 2002 COLOGUARD 2007 COLONOSCOPY 2007 COLORECTAL CANCER SCREENING 2007 FIT TEST 2007 FOBT 2007 SIGMOIDOSCOPY 2007 VIRTUAL COLONOSCOPY 2007 ZOSTER VACCINES (1 of 2) 2012 PNEUMOCOCCAL VACCINES (50+ years) (2 of 2 - PCV) 08/05/2013 08/05/2012, 07/25/1995 Adult Td,Tdap Booster 10/31/2020 10/31/2010 , 07/02/1999, 07/17/1993 COVID-19 VACCINE (1 - 2023-2 5 season) 2023 TSH LEVEL 02/05/2024 02/04/2023 RSV VACCINE (1 - 1-dose 75+ series) 2037 MENINGOCOCCAL VACCINES (ACWY) Aged Out 11/29/2004 No longer eligible based on patient's age to complete this topic HEPATITIS A VACCINES Aged Out 06/16/2013 No long er eligible based on patient's age to complete this topic SMOKING STATUS SCREENING (On ce After 26 Yrs) Completed 04/28/2023 HIB VACCINES Aged Out No longer eligi ble based on patient's age to complete this topic MENINGOCOCCAL VACCINES (B) Aged Out N o longer eligible based on patient's age to complete this topic Medical Devices Not on file Procedures Procedure Name Priority Date/Time Associated Diagnosis Comments TSH WITH REFLEX Routine 02/04/2023 9:43 AM EST Age-related osteoporosis without current pathological fracture from Last 3 Months or Most Recently Relevant to Health Maintenance Results * TSH with reflex (02/04/2023 9:43 AM EST) TSH 3.31 0.27 - 4.20 uIU/mL [facility] Blood 02/04/2023 9:43 AM EST 02/04/2023 9:47 AM EST us Silverio Isidro DO LAB BLOOD ORDERABLES Final Resul t [facility] [address] [place] [address] from Last 3 Months or Most Recently Relevant to Health Maintenance Insurance [employer] DIRECT [employer] DIRECT [employer] DIRECT [employer] DIRECT [employer] DIRECT [employer] DIRECT [employer] DIRECT [employer] DIRECT [employer] DIRECT Care Teams Punch Out Crew Member Relationship Specialty Start Date End Date Blanca Olmstead MD PCP - General Family Medicine 12/17/22 Additional Source Comments The information contained in this document represents components of the legal health record. It is not the complete legal health record.[facility]
[2024-09-24 14:09] LABS: Free T4 (Free Thyroxine) 0.77 ng/dL (0.71-1.85); Thyroid Stimulating Hormone 37.04 uIU/mL (0.32-4.0)
[2024-09-28 18:23] LABS: Prot Elec - Albumin 4.2 g/dL (3.8-4.8); Prot Elec - Alpha1 0.3 g/dL (0.2-0.3); Prot Elec - Alpha2 0.6 g/dL (0.5-0.9); Prot Elec - Beta 1 0.5 g/dL (0.4-0.6); Prot Elec - Beta 2 0.5 g/dL (0.2-0.5); Prot Elec - Gamma 1.3 g/dL (0.8-1.7); Prot Elec - Total Protein 7.3 g/dL (6.1-8.1)
== END 2024-09-24 11:50 | disposition home or self-care (01) ==
LOC: HO.LAB 11:49
PROVIDERS: PCP Family Medicine; Visit Provider Internal Medicine Endocrinology, Diabetes & Metabolism
DX: M81.0 Age-related osteoporosis without current pathological fracture (principal); E03.9 Hypothyroidism, unspecified
CPT/HCPCS: 36415; 82306; 84100; 84165; 84439; 84443; 86376

== ENCOUNTER 2024-09-29 09:57 | Outpatient (REF) | payer OTHER, SELFPAY ==
--- OUTSIDE RECORDS SUMMARY | 2024-09-29 10:29 | XMS_ITS | Clinical Summary ---
Author Organization [facility] Address [address] [place] [phone] Phone Care Team Providers Care Sales Vice President Name Role Phone Blanca Olmstead MD Primary Care Provider [phone] Allergies Active Allergy Reactions Criticality Noted Date [...] she will have to get from her cord splicer because I do not prescribe this or [...] Adult 06/16/2013 Hepatitis B, unspecified formulation 06/18/2005 INFLUENZA, SPLIT VIRUS, TRIVALENT W/ PRESERVATIV E IM 10/30/2011 Influenza, Unspecified Formulation 01/14/2005, MMR 12/22/2001,11/19/2001 Meningococcal [...] EST) TSH 3.31 0.27 - 4.20 uIU/mL [facility] Blood 02/04/2023 9:43 AM EST 02/04/2023 9:47 AM EST us Silverio Isidro DO LAB BLOOD ORDERABLES Final Resul t [facility] [address] [place] [address] from Last 3 Months or Most Recently Relevant to Health Maintenance Insurance [employer] DIRECT [employer] DIRECT [employer] DIRECT [employer] DIRECT [employer] DIRECT [employer] DIRECT [employer] DIRECT [employer] DIRECT [employer] DIRECT Care Teams Sales Vice President Relationship Specialty Start Date End Date Blanca Olmstead MD PCP - General Family Medicine 12/17/22 Additional Source Comments The information contained in this document represents components of the legal health record. It is not the complete legal health record.[facility]
--- OUTSIDE RECORDS SUMMARY | 2024-09-29 10:29 | XMS_ITS | Encounter Summary ---
Author Organization [employer] Address [address] [facility] [address] [place] [address] Care Team Providers Care Productivity Engineer Name Role Phone Blanca Olmstead MD Primary Care Provider Encounter Details Date Type Department Care Team ([facility] st Contact Info) Description 04/08/2024 Orders Only [facility] MEDICINE [address] [place], [place] [id number] Dea Gilliam MD [address] [place] [address] Impingement syndrome of right shoulder region (Primary [...] documented as of this encounter Care Teams Productivity Engineer Relationship Specialty Start Date End Date Blanca Olmstead MD [address] [place] [address] PCP - General Family Medicine 08/29/21 documented as of this encounter
[2024-09-29 14:02] LABS: Creatinine, mg/dL 89.43
[2024-09-29 14:56] LABS: Total Volume 24 Hour Urine 900 mL
[2024-09-30 19:48] LABS: Calcium/Creatinine Ratio 153 mg/g creat (30-275); Creatinine 24Hr Urine 0.83 g/24 h (0.50-2.15)
== END 2024-09-29 09:58 | disposition home or self-care (01) ==
LOC: HO.LNP 09:57
PROVIDERS: Visit Provider Internal Medicine Endocrinology, Diabetes & Metabolism
DX: M81.0 Age-related osteoporosis without current pathological fracture (principal)
CPT/HCPCS: 82340; 82570; 86335

== ENCOUNTER 2024-10-05 14:51 | Outpatient (AMB) | payer OTHER, SELFPAY ==
--- NOTE | 2024-10-05 14:55 | MHC.OFFVIS ---
Vital Signs 10/05/24 14:59 Height 5 ft 5.28 in Weight 123 lb 0.287 oz BMI 20.3 BP 92/54 L Blood Pressure Location Rt brachial Position Sitting Pulse 67 Pulse Source Pulse Oximeter Pulse Oximetry (%) 96 Oxygen Delivery Method Room Air Intake Visit Reasons: f/u osteoporosis Intake Note: Patient present today for Osteoporosis follow up. Patient Accounts Specialist Required: No Accompanied by: Self / Same As Patient Allergies No Known Allergies Allergy (Verified 10/05/24 15:00) HPI Comments Details: The patient is a 64-year-old female presenting with osteoporosis and hypothyroidism. Osteoporosis was identified approximately ten years ago, evidenced by bone density studies indicating osteopenia. Treatment using both Fosamax and Risidronate was discontinued after musculoskeletal side effects developed. There is no history of adult fractures, but there is familial osteoporosis, which she queries. Her hypothyroidism has been stable, with regular assessments indicating appropriate control, although she reports concern over potential side effects and questions the necessity of continued treatment. First diagnosed in 10 yrs ago with osteopenia . Received treatment in the past with alendronate , from 2022 and risidronate for 2 mos . Not Tolerated treatment well became stiff No history of pathologic fracture or ONJ. - Fosamax (Alendronate): Taken two years ago for two months, discontinued due to stiffness and pain - Risidronate: Taken following Fosamax, for a similar duration, also discontinued due to adverse musculoskeletal effects Has several servings of dietary calcium per day in the form of cereal with milk, cheese, yogurt . Takes Calcium supplement mg daily in divided doses. Takes 1200 IU of Vitamin D daily. The patient consumes a varied diet including cereal with milk, cheese, frozen yogurt, ice cream, and mac and cheese. She takes [id number]-[id number] calcium supplements but is informed that high-level dietary intakes may be adequate for her needs. Denies ever using PPI, anticoagulant, antiepileptic or glucocorticoid medication. Does weight bearing exercise 7 days per week in the form of shoulder exercises . - Resistance exercises performed daily for shoulder recovery Fracture history: N Height loss: N LEADITE HEATER history: Menarche at age 16 - Menopause at age 48 - nl Denies history of Kidney stones: Has family history of Osteoporosis and hip fracture in mother . UTD on dental cleanings and sees dentist every 6 months. No planned upcoming dental work or extractions. No heavy ETOH use or tabacco use DXA dated 11/02/21 : FINDINGS: AP SPINE L1-L4: BMD 0.836 g/cm2, Z-score -1.4, T-score -2.9, osteoporosis. LEFT FEMUR, NECK: BMD 0.707 g/cm2, Z-score -0.9, T-score -2.4, osteopenia. LEFT FEMUR, TOTAL: BMD 0.744 g/cm2, Z-score -0.9, T-score -2.1, osteopenia. IDENTIFIED RISK FACTORS: Low calcium intake, menopause. HISTORY OF FRACTURE: None listed. MEDICATIONS: None listed. MM/XR DEXA axial skeleton IMPRESSION: 1. DIAGNOSIS: Osteoporosis based on the lowest T-score value of -2.9 in the lumbar spine applying World Health Organization criteria. Labs:T score of -2.6 in LS - Bone density study, 2024: T-score of -2.6, indicating osteoporsis, possibly improved in a different location but cannot compare due to different machines - TSH level: 2.66 (normal) Secondary workup was negative The patient is a 64-year-old female presenting with concerns regarding hypothyroidism management and osteoporosis treatment options. The patient has a history of hypothyroidism, which was initially managed with levothyroxine. However, she stopped the medication to assess her thyroid levels, which resulted in a significant increase in TSH levels, indicating severe hypothyroidism. The patient has not resumed the medication, leading to concerns about potential complications such as myxedema coma. The patient also has osteoporosis, with a T-score of -2.9, but has not experienced any fractures. The discussion included potential treatment options such as Evenity, Forteo, and Tymlos, with considerations for insurance coverage and cost. Additionally, the patient reports a significant improvement in sleep quality after discontinuing levothyroxine, which she had not experienced in 22 years. The patient is concerned about returning to poor sleep quality upon resuming the medication. - Calcium: Taken for bone health. - Lorazepam: Used as needed. [facility] Medical History (Updated 06/08/24 @ 15:12 by Ashutosh Villafuerte MD) Hypothyroidism Osteoporosis Surgical History H/O repair of right rotator cuff Family History Mother COPD (chronic obstructive pulmonary disease) Father Dementia Social History Alcohol intake: never Patient Tobacco Use Status: Never used Tobacco Physical Exam Vital Signs: Last Vital Signs Pulse 67 10/05/24 14:59 BP 92/54 L 10/05/24 14:59 Pulse Ox 96 10/05/24 14:59 Oxygen Delivery Method Room Air 10/05/24 14:59 BMI result Body Mass Index 20.3 Assessment & Plan Assessment & Plan (1) Osteoporosis: Code(s): M81.0 - Age-related osteoporosis without current pathological fracture Category: Medical Plan: This is a 64-year-old white female with a history of osteoporosis with partial secondary workup. Secondary workup was negative Plan is to continue calcium and hold vitamin-D supplementation Considering patient's age and high risk of fracture, would consider treatment with anabolic initially like Tymlos or Forteo proceeded by an anti resorptive. 1. Hypothyroidism The patient requires resumption of levothyroxine due to elevated TSH levels indicating severe hypothyroidism. The importance of medication adherence was emphasized to prevent complications such as myxedema coma. 2. Osteoporosis Treatment options discussed include Evenity, Forteo, and Tymlos, with considerations for insurance coverage and cost. The patient has not experienced fractures, and the urgency of treatment is less immediate compared to hypothyroidism. 3. Sleep disturbance The patient reports improved sleep quality after discontinuing levothyroxine. Alternative formulations such as Synthroid or Tirosint were discussed to potentially mitigate sleep disturbances upon resuming thyroid medication. Patient was informed and verbally consented to the use of an ambient scribe for clinic note documentation during this visit. The patient had an opportunity to ask questions regarding treatment plan. The patient expressed understanding and agreement with the above treatment plan. Patient was informed and verbally consented to the use of an ambient scribe for clinic note documentation during this visit. (2) Hypothyroidism: Code(s): E03.9 - Hypothyroidism, unspecified Category: Medical Plan: Appears to be clinically and biochemically euthyroid on 62.5 ug of L-T4 . Levothyroxine was held and TSH climbed and patient was recent initiated on levothyroxine 62.5 mcg Plan is to recheck TSH and free T4 in about 6 weeks' time adjust levothyroxine accordingly 1. Hypothyroidism The patient requires resumption of levothyroxine due to elevated TSH levels indicating severe hypothyroidism. The importance of medication adherence was emphasized to prevent complications such as myxedema coma. During the consultation, we discussed the necessity of resuming levothyroxine for hypothyroidism management due to elevated TSH levels. I explained the potential risks of untreated hypothyroidism, including myxedema coma. We also explored osteoporosis treatment options, considering insurance coverage and cost implications. The patient expressed concerns about sleep disturbances related to levothyroxine, and we discussed alternative formulations such as Synthroid or Tirosint to address this issue. Follow-up was planned to reassess thyroid function and evaluate the effectiveness of any new osteoporosis treatment. - Resume levothyroxine as prescribed to manage hypothyroidism. - Consider alternative thyroid medication formulations if sleep disturbances occur. - Follow up in 4-6 weeks for thyroid function tests. - Discuss osteoporosis treatment options with insurance for coverage details. 3. Sleep disturbance The patient reports improved sleep quality after discontinuing levothyroxine. Alternative formulations such as Synthroid or Tirosint were discussed to potentially mitigate sleep disturbances upon resuming thyroid medication. Medications: New romosozumab-aqqg (Evenity) 210 mg (2.34 mL) subcut QMONTH 12 months 2.34 mL 11RF romosozumab-aqqg (Evenity) 210 mg (2.34 mL) subcut QMONTH 2.34 mL 11RF 12 months Coding Level of Care Code Est Pt Level 3 (70591) Diagnoses Osteoporosis M81.0 Hypothyroidism E03.9
[2024-10-05 14:59] VITALS: BP 92/54; PULSE 67; O2SAT 96; BMI 20.3
--- OUTSIDE RECORDS SUMMARY | 2024-10-05 15:43 | XMS_ITS | Encounter Summary ---
Author Organization [employer] Address [address] [facility] [address] [place] [address] Care Team Providers Care Crusher Loader Equipment Operator Name Role Phone Blanca Olmstead MD Primary Care Provider [phone] Encounter Details Date Type Department Care Team ([facility] st Contact Info) Description 04/08/2024 Orders Only [facility] MEDICINE [address] [place], [place] [phone] Dea Gilliam MD [address] [place] [address] Impingement syndrome of right shoulder region (Primary [...] documented as of this encounter Care Teams Crusher Loader Equipment Operator Relationship Specialty Start Date End Date Blanca Olmstead MD [address] [place] [address] PCP - General Family Medicine 08/29/21 documented as of this encounter
--- OUTSIDE RECORDS SUMMARY | 2024-10-05 15:43 | XMS_ITS | Clinical Summary ---
Author Organization [facility] Address [address] [place] [phone] Phone Care Team Providers Care Welding Machine Operator Resistance Name Role Phone Blanca Olmstead MD Primary Care Provider [phone] Allergies Active Allergy Reactions Criticality Noted Date [...] she will have to get from her chainman because I do not prescribe this or [...] EST) TSH 3.31 0.27 - 4.20 uIU/mL [facility] Blood 02/04/2023 9:43 AM EST 02/04/2023 9:47 AM EST us Silverio Isidro DO LAB BLOOD ORDERABLES Final Resul t [facility] [address] [place] [address] from Last 3 Months or Most Recently Relevant to Health Maintenance Insurance [employer] DIRECT [employer] DIRECT [employer] DIRECT [employer] DIRECT [employer] DIRECT [employer] DIRECT [employer] DIRECT [employer] DIRECT [employer] DIRECT Care Teams Welding Machine Operator Resistance Relationship Specialty Start Date End Date Blanca Olmstead MD PCP - General Family Medicine 12/17/22 Additional Source Comments The information contained in this document represents components of the legal health record. It is not the complete legal health record.[facility]
== END 2024-10-05 15:41 | disposition home or self-care (01) ==
LOC: HO.ENCR 14:52
PROVIDERS: PCP Family Medicine; Visit Provider Internal Medicine Endocrinology, Diabetes & Metabolism
DX: M81.0 Age-related osteoporosis without current pathological fracture (principal); E03.9 Hypothyroidism, unspecified
CPT/HCPCS: 99213

== ENCOUNTER → 2024-10-05 14:51 | Outpatient (BNVA) | payer OTHER, SELFPAY | PROVIDERS: PCP Family Medicine; Visit Provider Internal Medicine Endocrinology, Diabetes & Metabolism | DX: M81.0 Age-related osteoporosis without current pathological fracture (principal); E03.9 Hypothyroidism, unspecified; Z78.0 Asymptomatic menopausal state | CPT/HCPCS: 99212 ==

== ENCOUNTER 2024-12-22 10:11 | Outpatient (REF) | payer OTHER, SELFPAY ==
[2024-12-22 12:21] LABS: Free T4 (Free Thyroxine) 1.19 ng/dL (0.71-1.85); Thyroid Stimulating Hormone 2.29 uIU/mL (0.32-4.0)
--- OUTSIDE RECORDS SUMMARY | 2024-12-22 12:33 | XMS_ITS | Encounter Summary ---
Author Organization [employer] Address [address] [place] [address] 7 [place] [address] Care Team Providers Care Neonatal Specialist Name Role Phone Blanca Olmstead MD Primary Care Provider [phone] Reason for Visit * Reason Onset Date Comments Med Refill 10/31/2022 Encounter Details Date Type Department Care Team ([facility] st Contact Info) Description 10/31/2022 Telephone [facility] MED & PEDS [address] [place] [address] Blanca Olmstead MD [address] [place] [address] Med Refill Social History Tobacco Use Types [...] 9:51 AM EDT Medication was sent to [id number] on 09/30/22 #45 with 1 [...] documented as of this encounter Care Teams Neonatal Specialist Relationship Specialty Start Date End Date Blanca Olmstead MD [address] [place] [address] PCP - General Family Medicine 08/29/21 documented as of this encounter
--- OUTSIDE RECORDS SUMMARY | 2024-12-22 12:33 | XMS_ITS | Encounter Summary ---
Author Organization [employer] Address [address] [place] [address] 7 [place] [address] Care Team Providers Care Political Organizer Name Role Phone Blanca Olmstead MD Primary Care Provider [phone] Reason for Visit * Reason Onset Date Comments Triage 07/24/2022 Encounter Details Date Type Department Care Team ([facility] st Contact Info) Description 07/24/2022 Telephone [facility] MED & PEDS [address] [place] [address] Blanca Olmstead MD [address] [place] [address] Triage Social History Tobacco Use Types Packs/Day [...] documented as of this encounter Care Teams Political Organizer Relationship Specialty Start Date End Date Blanca Olmstead MD [address] [place] [phone] PCP - General Family Medicine 08/29/21 documented as of this encounter
--- OUTSIDE RECORDS SUMMARY | 2024-12-22 12:33 | XMS_ITS | Encounter Summary ---
Author Organization [employer] Address [address] [facility] 7 [place] [address] Care Team Providers Care Nursing Education Consultant Name Role Phone Blanca Olmstead MD Primary Care Provider [phone] Encounter Details Date Type Department Care Team ([facility] st Contact Info) Description 01/20/2024 Orders Only [facility] CHC MED & PEDS [address] [place] [address] Jennifer Alejandro MD [address] [place] [address] Inverse psoriasis (Primary Dx) Social History Tobacco [...] documented as of this encounter Care Teams Nursing Education Consultant Relationship Specialty Start Date End Date Blanca Olmstead MD [address] [place] [address] PCP - General Family Medicine 08/29/21 documented as of this encounter
--- OUTSIDE RECORDS SUMMARY | 2024-12-22 12:33 | XMS_ITS | Clinical Summary ---
Author Organization [employer] Address [address] [facility] 7 [place] [address] Care Team Providers Care China Decorator Name Role Phone Blanca Olmstead MD Primary Care Provider [phone] Allergies Active Allergy Reactions Criticality Noted Date Comments Azithromycin Shortness of breath High 04/25/2016 Medications cholecalciferol (Vitamin D-3) 50 MCG (2000 UT) tablet Take by mouth daily. Active calcium carbonate (Os-Sloan) 1250 (500 Ca) MG tablet Take 2 tablets by mouth in the morning. 02/15/20 11 Active nitroglycerin (Rectiv) 0.4 % (w/w) rectal ointment Insert 1 inch (1 Application.) into the rectum every 12 (twelve) hours. 30 g 02/22/20 23 Active Lidocaine, Anorectal, 5 % cream Apply 1 Application topically 2 times daily. 113 g 02/26/19 24 Active triamcinolone (Kenalog) 0.1 % creamIndication s:Inverse psoriasis Apply topically if needed in the morning and at bedtime (pain and swelling). 30 g 2 01/21/20 24 Active calcipotriene (Dovonex) 0.005 % ointmentIndicat ions:Inverse psoriasis Apply topically 2 times daily. 60 g 2 01/21/20 24 Active levothyroxine (Synthroid, Levoxyl) 125 MCG tabletIndicatio ns:Hypothyroidi sm, unspecified type TAKE 1/2 TABLET BY MOUTH ONCE DAILY *TAKE 30 MINUTES BEFORE BREAKFAST* 45 tablet 1 04/05/19 25 Active levothyroxine (Synthroid, Levoxyl) 125 MCG tabletIndicatio ns:Hypothyroidi sm, unspecified type TAKE 1/2 TABLET BY MOUTH ONCE DAILY *TAKE 30 MINUTES BEFORE BREAKFAST* 45 tablet 1 04/05/19 25 Active LORazepam (Ativan) 1 MG tablet TAKE 1 TABLET (1 MG) BY MOUTH 1 (ONE) TIME IF NEEDED FOR ANXIETY. 1 tablet 12/23/19 25 Active LORazepam (Ativan) 1 MG tablet Take 1 tablet (1 mg) by mouth 1 (one) time if needed for anxiety. 1 tablet 03/05/19 25 025 Discontinued Active Problems Problem Noted Date Diagnosed Date [...] patient will want second opinion, will send [facility] Hemorrhoids 02/21/2023 Assessment & Plan (02/27/2023 10:22 [...] daily of risedronate daily and refer to residential director. If no improvement or recurrent of symptoms [...] Encounters Date Type Department Care Team Description 12/21/2024 [facility]ill [facility] MED [facility]EDS [address] [place] [address] Blanca Olmstead MD 09/24/2024 Orders Only GENERIC EXTERNAL DATA DEPARTMENT Provider, Generic External Data from Last 3 Months Immunizations Immunization Administration Dates Next Due Hep A, Adult [...] 70 03/01/2024 10:41 AM EST Temperature 36.8 C (98.2 F) 03/01/2024 10:41 AM EST Respiratory Rate 20 03/01/2024 10:41 AM EST [...] FIT DNA/Cologuard 1962 FIT 1962 FOBT 1962 Sigmoidoscopy 1962 Disability Screening 1962 Hepatitis C Screening 1980 Pneumococcal Vaccine: 50+ Years (2 of 2 - PCV) 08/05/2013 08/05/2012, 07/25/1995 Mammogram 10/08/2022 10/08/2021, 04/, 03/09/2013, Additional history exists SDOH Screening 06/08/2023 06/07/2022 Depression Monitoring 08/29/2024 03/01/2024, 025 COVID-19 Vaccine ( - season) 2024 Influenza Vaccine (#1) 2024 2, 01/14/2005, 01/01/2005 Alcohol/Substance Use Screening 03/01/2025 03/01/2024 DTaP/Tdap/Td Vaccines (2 - Td or Tdap) 03/01/2025 10/31/2010, 07/02/1999, 07/17/1993 Postponed from 10/31/2020 (Patient Refused) Hepatitis B Vaccines (2 of 3 - 19+ 3-dose series) 03/01/2025 06/18/2005 Postponed from 07/16/2005 (Patient Refused) RSV Patients and Patients Aged 60 years or older (1 - Risk 60-74 years 1-dose series) 03/01/2025 Postponed from 2022 (Patient Refused) Tobacco Screening 03/01/2025 03/01/2024 Zoster Vaccines (1 of 2) 03/01/2025 Pos tponed from 2012 (Patient Refused) Cervical Cancer Screening 09/25/2026 HPV/Cotest 09/25/2026 09/25/2021, 10/08/2013 Pap Smear 09/25/2026 09/25/2021, 09/25/2021 HIV Screening Completed 08/05/1994 Meningococcal Vaccine Aged Out 11/29/2004 No graciela [...] on patient's age to complete this topic Meningococcal B Vaccine Aged Out No l onger eligible based on patient's age to complete this topic RSV under 20 months Aged Out No longe r eligible based on patient's age to complete this topic Rotavirus Vaccines Aged Out No longer eligible based on patient's age to complete this topic Procedures Procedure Name Priority Date/Time Associated Diagnosis Comments PROTEIN, TOTAL AND PROTEIN ELECTROPHORESIS Routine 09/24/2024 12:09 PM EDT THYROID PEROXIDASE ANTIBODIES Routine 09/24/2024 12:09 PM EDT TSH Routine 09/24/2024 12:09 PM EDT T4, FREE Routine 09/24/2024 12:09 PM EDT VITAMIN D,25-OH,TOTAL,IA Routine 09/24/2024 12:09 PM EDT PHOSPHATE ( PHOSPHORUS) Routine 09/24/2024 12:09 PM EDT BI MAMMOGRAM SCREENING BILATERAL Routine 10/08/2021 THINPREP IMAGING PAP AND HPV MRNA E6/E7, WITH CT/NG, TRICHOMONAS Routine 09/25/2021 3:47 PM EDT PAP SMEAR Routine 09/25/2021 12:00 AM EDT from Last 3 Months or Most Recently Relevant to Health Maintenance Results * Vitamin D, 25-Hydroxy, Total, Immunoassay (09/24/2024 12:09 PM EDT) Vitamin D 25-OH Total 51.9 >30 ng/mL [facility] Comment: Health Based Reference Values*< 20 ng/mL Imikdckum24-18 ng/mL Insufficient> 30 ng/mL Sufficient*Miguel TAN. N Engl J Med. 2007;357:266-280There is no well-established upper level of normal vitamin Dlevels. Some laboratories use 50 ng/mL as an upper limit ofnormal. However, toxicity is patient-dependent and may occurat any level. Careful correlation with the patient'spresentation is necessary and, if there is concern forvitamin D toxicity, treatment should be consideredirrespective of the serum level.Care must be taken in interpreting Vitamin D results fromdifferent laboratories and methodologies. Published datademonstrated that results from patients undergoinghemodialysis may show a negative bias when tested withvarious automated 25-OH vitamin D assays when compared toLC-MS/MS.When testing samples from patients whose predominant form ofVitamin D is Vitamin D2, such as patients receiving VitaminD2 supplementation, results that are subtherapeutic shouldbe confirmed with another method such as LC-MS/MS. 09/24/2024 12:0 9 PM EDT 09/24/2024 12:09 PM EDT Generic External Data Provider LAB BLOOD ORDERAB LES Final Result Performing Organization Address [facility]/ZIP Co de Phone Number [facility] [address] [place] [phone] * Thyroid Peroxidase Antibodies (09/24/2024 12:09 PM EDT) Thyroid Peroxidase Antibodies 2 <9 IU/mL [facility] Comment:THIS TEST WAS PERFOR MED AT:[facility] [place] [phone] MORRIS MD 09/24/2024 12:0 9 PM EDT 09/24/2024 12:09 PM EDT us Generic External Data Provider LAB BLOOD ORDERAB LES Final Result Performing Organization Address [facility] Co de Phone Number [facility] [address] [place] [phone] * (ABNORMAL) TSH (09/24/2024 12:09 PM EDT) Thyroid Stimulating Hormone 37.04(H) 0.32 - 4.0 uIU/mL [facility] Comment:Note: A sustained TS H level above 2.5 uIU/mL may warrant further investigation. TSH 3rd Generation ([facility]) 09/24/2024 12:0 9 PM EDT 09/24/2024 12:09 PM EDT us Generic External Data Provider LAB BLOOD ORDERAB LES Final Result Performing Organization Address [facility]/ZIP Co de Phone Number [facility] [address] [place] [phone] * T4, Free (09/24/2024 12:09 PM EDT) Pathologist [facility] Free T4 (Free Thyroxine) 0.77 0.71 - 1.85 ng/dL [facility] 09/24/2024 12:0 9 PM EDT 09/24/2024 12:09 PM EDT Generic External Data Provider LAB BLOOD ORDERAB LES Final Result Performing Organization Address [facility] Co de Phone Number [facility] [address] [place] [phone] * Protein, Total and Protein??Electrophoresis (09/24/2024 12:09 PM EDT) Prot Elec - Total Protein 7.3 6.1 - 8.1 g/dL [facility] Prot Elec - Albumin 4.2 3.8 - 4.8 g/dL [facility] Prot Elec - Alpha1 0.3 0.2 - 0.3 g/dL [facility] Prot Elec - Alpha2 0.6 0.5 - 0.9 g/dL [facility] Prot Elec - Beta 1 0.5 0.4 - 0.6 g/dL [facility] Prot Elec - Beta 2 0.5 0.2 - 0.5 g/dL [facility] Prot Elec - Gamma 1.3 0.8 - 1.7 g/dL [facility] PES - Abn Protein Band [facility]-Ab[facility] Protein Band 2 [facility] PES-Abn Protein Band 3 [facility] Prot Elec - Interpretation SEE NOTE [facility] Comment:Normal Serum Protein Electrophoresis Pattern.No abnormal protein bands (M-protein) detected.THIS TEST WAS PERFORMED AT:[facility] [place] [phone] MORRIS MD 09/24/2024 12:0 9 PM EDT 09/24/2024 12:09 PM EDT Generic External Data Provider LAB BLOOD ORDERAB LES Final Result Performing Organization Address [facility]/ZIP Co de Phone Number [facility] [address] [place] [phone] * Phosphate (As Phosphorus) (09/24/2024 12:09 PM EDT) Phosphorus 3.0 2.7 - 4.5 mg/dL [facility] 09/24/2024 12:0 9 PM EDT 09/24/2024 12:09 PM EDT Generic External Data Provider LAB BLOOD ORDERAB LES Final Result Performing Organization Address [facility]/ZIP Co de Phone Number [facility] [address] [place] [phone] * BI Mammogram Screening Bilateral (10/08/2021) Anatomical Region Laterality Modality Breast Bilateral Mammography 10/08/2021 Narrative 02/26/2022 4:14 PM EST BI-RADS 2 (10/08/21) Historical Provider MD HARKINS BI PROCEDURES Final R esult * THINPREP TIS PAP AND HPV mRNA E6/E7, CT/NG, TRICH (09/25/2021 3:47 PM EDT) Chlamydia trachomatis RNA, TMA, Urogenital NOT DETECTED NOT DETECTED [facility] Clinical Information: None given [facility] COMMENT SEE COMMENT [facility] Comment: The analytical performance characteristics of this assay, when used to test SurePath(TM) specimens have been determined by [facility]. The modifications have not been cleared or approved by the FDA. This assay has been validated pursuant to the CLIA regulations and is used for clinical purposes. For additional information, please refer to https://[facility].[employer]/faq/WDU014 (This link is being provided for information/ educational purposes only.) COMMENT SEE COMMENT [facility] Comment: EXPLANATORY NOTE: The Pap is a screening test for cervical cancer. It is not a diagnostic test and is subject to false negative and false positive results. It is most reliable when a satisfactory sample, regularly obtained, is submitted with relevant clinical findings and history, and when the Pap result is evaluated along with historic and current clinical information. COMMENT: This Pap test has been evaluated with computer assisted technology. [facility] Cardiopulmonary Technologist: SEE COMMENT [facility] Comment: HECTOR GARCIA(ASCP) CT screening location: [place] [address] HPV nRNA E6/E7 Not Detected Not Detected [facility] Comment: Methodology: Portfolio Lead-Mediated Amplification This assay detects E6/E7 viral messenger RNA (mRNA) from 14 high-risk HPV types (16,18,31,33,35,39,45,51,52,56,58,59,66,68). Cervical sources are required for HPV testing. If a vaginal source from a patient who has had a total hysterectomy with removal of cervix was submitted, please contact the testing laboratory for alternative testing options. For additional information, please refer to http://education.[employer]/faq/KNQ683d3 (This link if provided for information/ educational purposes only.) Interpretation/Res ult: SEE COMMENT [facility] Comment: Negative for intraepithelial lesion [...] EVALUATION Age and/or menstrual status not provided [facility] Trichomonas vaginalis, QL, TMA, PAP Vial NOT DETECTED NOT DETECTED [facility] Comment: The analytical performance characteristics of this assay have been determined by [facility]. The modifications have not been cleared or approved by the FDA. This assay has been validated pursuant to the CLIA regulations and is used for clinical purposes. For additional information, please refer to http://education.[employer]/ faq/Trichomonastma (This link is being provided for information/ educational purposes only.) 09/25/2021 3:47 PM EDT Ni [facility]OPE[facility] LAB PATHOLOGY ORDERABLES Final Result [facility] Count includes the [facility] [address] * Pap Smear (09/25/2021 12:00 AM EDT) Swab Historical Provider MD LAB CYTOLOGY ORDERABLES F inal Result EXTERNAL LAB from Last 3 Months or Most Recently Relevant to Health Maintenance Insurance [facility] Care Teams China Decorator Relationship Specialty Start Date End Date Blanca Olmstead MD [address] [place] [phone] PCP - General Family Medicine 08/29/21
--- OUTSIDE RECORDS SUMMARY | 2024-12-22 12:33 | XMS_ITS | Clinical Summary ---
Author Organization [facility] Address [address] [place] [phone] Phone Care Team Providers Care Dope Edger Name Role Phone Blanca Olmstead MD Primary Care Provider [phone] Allergies Active Allergy Reactions Criticality Noted Date [...] she will have to get from her glycerin operator because I do not prescribe this or [...] Td,Tdap Booster 10/31/2020 10/31/2010 , 07/02/1999, 07/17/1993 TSH LEVEL 02/05/2024 02/04/2023 INFLUENZA VACCINE (#1) 2024 2, 01/14/2005, 01/01/2005 COVID-19 VACCINE (1 - 2024-2 6 season) 2024 RSV VACCINE (1 - 1-dose 75+ series) [...] EST) TSH 3.31 0.27 - 4.20 uIU/mL Blood 02/04/2023 9:43 AM EST 02/04/2023 9:47 AM EST Silverio Isidro DO LAB BLOOD ORDERABLES Final Resul t [address] [place] [address] from Last 3 Months or Most Recently Relevant to Health Maintenance Insurance [employer] DIRECT [employer] DIRECT [employer] DIRECT [employer] DIRECT [employer] [place] [address] [address] [employer] DIRECT [employer] [place] [address] [employer] DIRECT Care Teams Dope Edger Relationship Specialty Start Date End Date Blanca Olmstead MD PCP - General Family Medicine 12/17/22 Additional Source Comments The information contained in this document represents components of the legal health record. It is not the complete legal health record.[facility]
--- OUTSIDE RECORDS SUMMARY | 2024-12-22 12:33 | XMS_ITS | Encounter Summary ---
Author Organization [employer] Address [address] [facility] 7 [place] [address] Care Team Providers Care Racking Technician Name Role Phone Blanca Olmstead MD Primary Care Provider [phone] Encounter Details Date Type Department Care Team ([facility] st Contact Info) Description 04/08/2024 Orders Only [facility] MEDICINE [address] [place], [place] [phone] Dea Gilliam MD [address] [place] [address] Impingement syndrome of right shoulder region (Primary [...] documented as of this encounter Care Teams Racking Technician Relationship Specialty Start Date End Date Blanca Olmstead MD [address] [place] [address] PCP - General Family Medicine 08/29/21 documented as of this encounter
--- OUTSIDE RECORDS SUMMARY | 2024-12-22 12:33 | XMS_ITS | Encounter Summary ---
Author Organization [facility] Address [address] [place] [address] [place] [phone] Phone Care Team Providers Care Pony Worker Name Role Phone Pcp, Not Required Primary Care Provider Blanca Fish MD Primary Care Provider [phone] Encounter Details Date Type Department Care Team (Late st Contact Info) Description 06/09/2022 Ophth Exam [facility] [address] [place] [address] Kenneth Azul MD [address] [place] [address] [email or web address] Social History Tobacco Use Types Packs/Day Years Used Date Smoking Tobacco: Never Smokeless Tobacco: Never Alcohol Use Standard Drinks/Week Comments Not Currently 0 (1 standard drink = 0.6 oz pur e alcohol) Intimate Partner Violence Answer Date R ecorded [...] on file Sexual Orientation Not on file documented as of this encounter Functional Status * Calculated C-SSRS Risk Score (Lifetime/Recent) Answer Date of Assessment Author No Risk Indicated 06/09/2022 4:00 PM Luis Daniel Sutherland RN * [place] Suicide Severity Rating Scale (Screener/Recent Self-Report) Question Answer Date of Assessment Author 1. Wish to be (Past 1 Month) No 023 4:00 PM Shilpa Sutherland RN 2. Non-Specific Active Suici angelo Thoughts (Past 1 Month) No 06/09/2022 4:00 PM Shilpa Sutherland RN 6. Suicidal Behavior (Lifetime) No 3 4:00 PM Shilpa Sutherland RN documented as of this encounter Plan of Treatment Not on file documented as of this encounter Visit Diagnoses Not on filedocumented in this encounter Care Teams Pony Worker Relationship Specialty Start Date End Date Pcp, Not Required [address] [place] [phone] PCP - General 06/09/22 12/16/22 Blanca Olmstead MD [address] [place] [address] PCP - General Family Medicine 12/17/22 documented as of this encounter Additional Source Comments The information contained in this document represents components of the legal health record. It is not the complete legal health record.[facility]
--- OUTSIDE RECORDS SUMMARY | 2024-12-22 12:33 | XMS_ITS | Encounter Summary ---
Author Organization [employer] Address [address] [facility] 7 [place] [address] Care Team Providers Care First Sampler Name Role Phone Blanca Olmstead MD Primary Care Provider [phone] Reason for Visit * Reason Comments Med Refill Encounter Details Date Type Department Care Team ([facility] st Contact Info) Description 12/21/2024 Refill [facility] CHC MED & PEDS [address] [place] [address] Blanca Olmstead MD [address] [place] [address] Social History Tobacco Use Types Packs/Day Years [...] documented as of this encounter Care Teams First Sampler Relationship Specialty Start Date End Date Blanca Olmstead MD [address] [place] [address] PCP - General Family Medicine 08/29/21 documented as of this encounter
--- OUTSIDE RECORDS SUMMARY | 2024-12-22 12:34 | XMS_ITS | Encounter Summary ---
Author Organization [email or web address] Address [address] [facility] 7 [place] [address] Care Team Providers Care Acid Washer Operator Name Role Phone Blanca Olmstead MD Primary Care Provider [phone] Reason for Visit * Reason Onset Date Comments Appointment Request 07/16/2023 Encounter Details Date Type Department Care Team ([facility] st Contact Info) Description 07/16/2023 Telephone [facility] MEDICINE [address] [place] [address] Blanca Olmstead MD [address] [place] [address] Appointment Request Social History Tobacco Use Types [...] documented as of this encounter Care Teams Acid Washer Operator Relationship Specialty Start Date End Date Blanca Olmstead MD [address] [place] [address] PCP - General Family Medicine 08/29/21 documented as of this encounter
== END 2024-12-22 10:12 | disposition home or self-care (01) ==
LOC: HO.10HDL 10:11
PROVIDERS: Visit Provider Internal Medicine Endocrinology, Diabetes & Metabolism
DX: E03.9 Hypothyroidism, unspecified (principal)
CPT/HCPCS: 36415; 84439; 84443

== ENCOUNTER 2025-01-04 10:24 | Outpatient (AMB) | payer OTHER, SELFPAY ==
--- NOTE | 2025-01-04 10:25 | MHC.OFFVIS ---
Vital Signs 01/04/25 10:29 Height 5 ft 5.28 in Weight 123 lb 7.342 oz BMI 20.4 BP 96/56 L Blood Pressure Location Lt brachial Position Sitting Pulse 68 Pulse Source Pulse Oximeter Pulse Oximetry (%) 96 Oxygen Delivery Method Room Air Intake Visit Reasons: f/u osteoporosis/ hypothyroidism Intake Note: Patient present today for Osteoporosis follow up. 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 Osteoporosis was identified approximately ten years ago, evidenced by bone density studies indicating osteopenia. Treatment using both Fosamax and Risidronate was discontinued after musculoskeletal side effects developed. There is no history of adult fractures, but there is familial osteoporosis, which she queries. Her hypothyroidism has been stable, with regular assessments indicating appropriate control, although she reports concern over potential side effects and questions the necessity of continued treatment. First diagnosed in 10 yrs ago with osteopenia . Received treatment in the past with alendronate , from 2022 and risidronate for 2 mos . Not Tolerated treatment well became stiff No history of pathologic fracture or ONJ. - Fosamax (Alendronate): Taken two years ago for two months, discontinued due to stiffness and pain - Risidronate: Taken following Fosamax, for a similar duration, also discontinued due to adverse musculoskeletal effects Has several servings of dietary calcium per day in the form of cereal with milk, cheese, yogurt . Takes Calcium supplement mg daily in divided doses. Takes 1200 IU of Vitamin D daily. The patient consumes a varied diet including cereal with milk, cheese, frozen yogurt, ice cream, and mac and cheese. She takes dama-qry-zddgoke calcium supplements but is informed that high-level dietary intakes may be adequate for her needs. Denies ever using PPI, anticoagulant, antiepileptic or glucocorticoid medication. Does weight bearing exercise 7 days per week in the form of shoulder exercises . - Resistance exercises performed daily for shoulder recovery Fracture history: N Height loss: N [employer] history: Menarche at age 16 - Menopause at age 48 - nl Denies history of Kidney stones: Has family history of Osteoporosis and hip fracture in mother . UTD on dental cleanings and sees dentist every 6 months. No planned upcoming dental work or extractions. No heavy ETOH use or tabacco use DXA dated 11/02/21 : FINDINGS: AP SPINE L1-L4: BMD 0.836 g/cm2, Z-score -1.4, T-score -2.9, osteoporosis. LEFT FEMUR, NECK: BMD 0.707 g/cm2, Z-score -0.9, T-score -2.4, osteopenia. LEFT FEMUR, TOTAL: BMD 0.744 g/cm2, Z-score -0.9, T-score -2.1, osteopenia. IDENTIFIED RISK FACTORS: Low calcium intake, menopause. HISTORY OF FRACTURE: None listed. MEDICATIONS: None listed. MM/XR DEXA axial skeleton IMPRESSION: 1. DIAGNOSIS: Osteoporosis based on the lowest T-score value of -2.9 in the lumbar spine applying World Health Organization criteria. Labs:T score of -2.6 in LS - Bone density study, 2024: T-score of -2.6, indicating osteoporsis, possibly improved in a different location but cannot compare due to different machines - TSH level: 2.66 (normal) Secondary workup was negative . On 62.5 mcg Levoxyl for hypothyroidism [facility] Medical History (Updated 06/08/24 @ 15:12 by Ashutosh Villafuerte MD) Hypothyroidism Osteoporosis Surgical History H/O repair of right rotator cuff Family History Mother COPD (chronic obstructive pulmonary disease) Father Dementia Social History Alcohol intake: never Patient Tobacco Use Status: Never used Tobacco Physical Exam Vital Signs: Last Vital Signs Pulse 68 01/04/25 10:29 BP 96/56 L 01/04/25 10:29 Pulse Ox 96 01/04/25 10:29 Oxygen Delivery Method Room Air 01/04/25 10:29 BMI result Body Mass Index 20.4 There are no Cushingoid features. Absence of blue sclera. Absence of kyphosis. Thyroid gland is of nl size and weighs 15 gms. There are no thyroid nodules palpated. Lungs CTA. Heart S1 S2 Reg R/R Abdominal exam benign. Muscle strength 5/5 . Examination of spine reveals absence of tenderness on palpation Assessment & Plan Assessment & Plan (1) Osteoporosis: Code(s): M81.0 - Age-related osteoporosis without current pathological fracture Category: Medical Plan: This is a 64-year-old white female with a history of osteoporosis with partial secondary workup. Secondary workup was negative. Recent DEXA showed borderline osteoporosis with T-score of -2.6 somewhat improved from the previous bone density but performed on different machines Plan is to continue calcium and hold vitamin-D supplementation . Would stressed nonpharmacologic therapy. Primary care provider can repeat DEXA bone density in 1 year's time and if significant decline can returned back to endocrinology for discussion of treatment options . . (2) Hypothyroidism: Code(s): E03.9 - Hypothyroidism, unspecified Category: Medical Plan: Appears to be clinically and biochemically euthyroid on 62.5 ug of L-T4 . Plan is to continue the current therapy. In terms of the hypothyroidism at this point, patient returned back to the care of her primary care provider returned back to endocrinology as needed Coding Level of Care Code Est Pt Level 3 (30429) Diagnoses Osteoporosis M81.0 Hypothyroidism E03.9
[2025-01-04 10:29] VITALS: BP 96/56; PULSE 68; O2SAT 96; BMI 20.4
--- OUTSIDE RECORDS SUMMARY | 2025-01-04 11:58 | XMS_ITS | Data Portability ---
Author Organization LARON Bernardo Jett [facility], [facility] Address [address] [place] [address] Care Team Providers Care Car Sales Associate Name Role Phone [facility] Primary Care Provider [phone] Assessment Encounter Date Assessment Date Assessment LastModified [...] right shoulder, she demonstrates active shoulder elevation 160 and external rotation to 45 . 5/5 strength in rotator cuff testing. Impression [...] mouth, I am referring her over to [facility] to have this evaluated further and again the recommendations, which the patient requested. I also recommend that she schedule a visit with her PCP in these regards. At this point, I am happy to see her back as needed. All questions and concerns were addressed. I recommended good lifting mechanics moving forward indefinitely. [email or web address] Not available 06/01/2024 10:54:54 Plan of Treatment [...] Recorded Time Pain of right shoulder joint [id number] 9100 Active 2023 aldair day kajal [facility] 5 10:56:25 Impingement syndrome of right shoulder region [id number] 02 Active 2023 torito rdz [facility] 4 10:48:49 Problem Notes None recorded. Procedures Surgical History Date Name Laterality Status Provider Name and Address Organization Details Recorded Time 5 93823 Therapeutic Exercise (1:1) completed Socorro Gómez, PT [address] [facility], [place], [address], [facility] 04/08/2024 15:26:42 5 89179: Hot or Cold Pack completed Socorro Gómez, PT [address] [facility], [place], [address], [facility] 04/08/2024 15:26:42 5 49790: Manual therapy completed Socorro Gómez, PT [address], [place], [address], [facility] 04/08/2024 15:26:42 5 65202 Therapeutic Exercise (1:1) completed Rachel Elena, DETENTION SERGEANT [address], [place], [address], [facility] 04/06/2024 10:51:58 5 57081: Hot or Cold Pack completed Rachel Elena DETENTION SERGEANT [address], [place], [address], [facility] 04/06/2024 10:51:58 5 72020: Manual therapy completed Rachel Elena, DETENTION SERGEANT [address], [place], [address], [facility] 04/06/2024 10:51:58 5 36142 Therapeutic Exercise (1:1) completed Aida Brendon, DETENTION SERGEANT [address], [place], [address], [facility] 04/02/2024 15:01:01 5 52849: Hot or Cold Pack completed Aida Brendon, DETENTION SERGEANT [address], [place], [address], [facility] 04/02/2024 15:01:01 5 76123: Manual therapy completed Aida Brendon, DETENTION SERGEANT [address], [place], [address], [facility] 04/02/2024 15:01:01 5 53643 Therapeutic Exercise (1:1) completed Socorro Gómez, PT [address], [place], [address], [facility] 03/30/2024 16:27:43 5 12423: Hot or Cold Pack completed Socorro Gómez, PT [address], [place], [address], [facility] 03/30/2024 16:27:43 5 15442: Manual therapy completed Socorro Gómez, PT [address], [place], [address], [facility] 03/30/2024 16:27:43 5 14625 Therapeutic Exercise (1:1) completed Socorro Pollouie, PT [address], [place], [address], [facility] 03/18/2024 12:12:53 5 88020: Hot or Cold Pack completed Socorro Gómez, PT [address], [place], [address], [facility] 03/18/2024 12:12:53 5 85704: Manual therapy completed Socorro Pollouie, PT [address], [place], [address], [facility] 03/18/2024 12:12:53 5 Sports Shoulder 4&1 completed Augustina Villalobos PA-C [address], [place], [address], [facility] 03/16/2024 22:23:04 5 66561 Therapeutic Exercise (1:1) completed Socorro Pollouie, PT [address], [place], [address], [facility] 03/11/2024 16:53:28 5 64054: Hot or Cold Pack completed Socorro Pollouie, PT [address], [place], [address], [facility] 03/11/2024 16:53:28 5 29373: Manual therapy completed Socorro Pollouie, PT [address], [place], [address], [facility] 03/11/2024 16:53:28 5 23831 Therapeutic Exercise (1:1) completed Socorro Pollouie, PT [address], [place], [address], [facility] 03/09/2024 15:03:28 5 09992: Hot or Cold Pack completed Socorro Polastry, PT [address], [place], [address], [facility] 03/09/2024 15:03:28 5 84885: Manual therapy completed Socorro Polmaritzay, PT [address], [place], [address], [facility] 03/09/2024 15:03:28 5 66932 Therapeutic Exercise (1:1) completed Socorro Polastry, PT [address], [place], [address], [facility] 03/02/2024 16:03:26 5 66231: Hot or Cold Pack completed Socorro Gómez, PT [address], [place], [address], [facility] 03/02/2024 16:03:26 5 93584: Manual therapy completed Socorro Gómez, PT [address], [place], [address], [facility] 03/02/2024 16:03:26 5 13197 Therapeutic Exercise (1:1) completed Aidaestephania Garciaius, DETENTION SERGEANT [address], [place], [address], [facility] 02/26/2024 16:01:40 5 19377: Hot or Cold Pack completed Aida Garciaius, DETENTION SERGEANT [address], [place], [address], [facility] 02/26/2024 16:01:48 5 29737: Manual therapy completed Aida Garciaius, DETENTION SERGEANT [address], [place], [address], [facility] 02/26/2024 16:01:56 4 30194 Therapeutic Exercise (1:1) completed Socorro Gómez, PT [address], [place], [address], [facility] 02/12/2024 15:27:54 4 70914: Low complexity PT Eval completed Socorro Gómez, PT [address], [place], [address], [facility] 02/12/2024 16:53:21 4 05219 Therapeutic Exercise (1:1) completed Socorro Gómez, PT [address], [place], [address], [facility] 01/20/2024 15:50:16 4 52408: Hot or Cold Pack completed Socorro Gómez, PT [address], [place], [address], [facility] 01/20/2024 15:50:16 4 00244: Manual therapy completed Socorro Gómez, PT [address], [place], [address], [facility] 01/20/2024 15:50:16 4 27583 Therapeutic Exercise (1:1) completed Aida Brendon, DETENTION SERGEANT [address], [place], [address], [facility] 01/15/2024 16:02:11 4 89360: Hot or Cold Pack completed Aida Brendon, DETENTION SERGEANT [address], [place], [address], [facility] 01/15/2024 16:02:11 4 44936: Manual therapy completed Aida Brendon, DETENTION SERGEANT [address], [place], [address], [facility] 01/15/2024 16:02:11 4 81863 Therapeutic Exercise (1:1) completed Aida Brendon, DETENTION SERGEANT [address], [place], [address], [facility] 01/13/2024 16:25:53 4 68796: Hot or Cold Pack completed Aida Brendon, DETENTION SERGEANT [address], [place], [address], [facility] 01/13/2024 16:25:53 4 71522: Manual therapy completed Aida Brendon, DETENTION SERGEANT [address], [place], [address], [facility] 01/13/2024 16:25:53 4 45305 Therapeutic Exercise (1:1) completed Aida Brendon, DETENTION SERGEANT [address], [place], [address], [facility] 01/08/2024 16:01:39 4 18160: Hot or Cold Pack completed Aida Brendon, DETENTION SERGEANT [address], [place], [address], [facility] 01/08/2024 16:01:39 4 25528: Manual therapy completed Aida Brendon, DETENTION SERGEANT [address], [place], [address], [facility] 01/08/2024 16:01:39 4 27755 Therapeutic Exercise (1:1) completed Aida Brendon, DETENTION SERGEANT [address], [place], [address], [facility] 01/06/2024 14:31:46 4 86627: Hot or Cold Pack completed Aida Brendon, DETENTION SERGEANT [address], [place], [address], [facility] 01/06/2024 14:31:46 4 33945: Manual therapy completed Aida Brendon, DETENTION SERGEANT [address], [place], [address], [facility] 01/06/2024 14:31:47 4 89044 Therapeutic Exercise (1:1) completed Aida Brendon, DETENTION SERGEANT [address], [place], [address], [facility] 01/01/2024 15:58:56 4 93234: Hot or Cold Pack completed Aida Brendon, DETENTION SERGEANT [address], [place], [address], [facility] 01/01/2024 15:58:56 98961: Manual therapy completed Aida Brendon, DETENTION SERGEANT [address], [place], [address], [facility] 01/01/2024 15:58:56 64243 Therapeutic Exercise (1:1) completed Aida Brendon, DETENTION SERGEANT [address], [place], [address], [facility] 12/30/2023 15:59:57 14164: Hot or Cold Pack completed Aida Brendon, DETENTION SERGEANT [address], [place], [address], [facility] 12/30/2023 15:59:56 62667: Manual therapy completed Aida Brendon, DETENTION SERGEANT [address], [place], [address], [facility] 12/30/2023 15:59:57 59488 Therapeutic Exercise (1:1) completed Aida Brendon, DETENTION SERGEANT [address], [place], [address], [facility] 12/25/2023 15:53:07 4 44863: Hot or Cold Pack completed Aida Brendon, DETENTION SERGEANT [address], [place], [address], [facility] 12/25/2023 15:53:07 86006: Manual therapy completed Aida Brendon, DETENTION SERGEANT [address], [place], [address], [facility] 12/25/2023 15:53:07 07550 Therapeutic Exercise (1:1) completed Socorro Gómez, PT [address], [place], [address], [facility] 12/23/2023 15:56:05 4 48125: Hot or Cold Pack completed Socorro Polastry, PT [address], [place], [address], [facility] 12/23/2023 15:56:04 4 38766: Manual therapy completed Socorro Polastry, PT [address], [place], [address], [facility] 12/23/2023 15:56:05 4 21028 Therapeutic Exercise (1:1) completed Aida Brendon, DETENTION SERGEANT [address], [place], [address], [facility] 12/18/2023 16:04:56 4 10306: Hot or Cold Pack completed Aida Brendon, DETENTION SERGEANT [address], [place], [address], [facility] 12/18/2023 16:03:02 4 87962: Manual therapy completed Aida Brendon, DETENTION SERGEANT [address], [place], [address], [facility] 12/18/2023 16:04:53 4 52319 Therapeutic Exercise (1:1) completed Aida Brendon, DETENTION SERGEANT [address], [place], [address], [facility] 12/16/2023 16:15:09 4 04288: Hot or Cold Pack completed Aida Brendon, DETENTION SERGEANT [address], [place], [address], [facility] 12/16/2023 16:15:09 4 43420: Manual therapy completed Aida Brendon, DETENTION SERGEANT [address], [place], [address], [facility] 12/16/2023 16:15:09 4 40318 Therapeutic Exercise (1:1) completed Aida Brendon, DETENTION SERGEANT [address], [place], [address], [facility] 12/11/2023 15:53:39 82912: Hot or Cold Pack completed Aida Brendon, DETENTION SERGEANT [address], [place], [address], [facility] 12/11/2023 15:53:39 28205: Manual therapy completed Aida Brendon, DETENTION SERGEANT [address], [place], [address], [facility] 12/11/2023 15:53:39 55149 Therapeutic Exercise (1:1) completed Aida Brendon, DETENTION SERGEANT [address], [place], [address], [facility] 12/09/2023 15:39:25 67068: Hot or Cold Pack completed Aida Brendon, DETENTION SERGEANT [address], [place], [address], [facility] 12/09/2023 15:39:25 87745: Manual therapy completed Aida Brendon, DETENTION SERGEANT [address], [place], [address], [facility] 12/09/2023 15:39:26 75333 Therapeutic Exercise (1:1) completed Socorro Polmaritzay, PT [address], [place], [address], [facility] 12/04/2023 16:11:57 63087: Hot or Cold Pack completed Socorro Polmaritzay, PT [address], [place], [address], [facility] 12/04/2023 16:11:57 50217: Manual therapy completed Socorro Pollouie, PT [address], [place], [address], [facility] 12/04/2023 16:11:57 4 35283 Therapeutic Exercise (1:1) completed Socorro Gómez, PT [address], [place], [address], [facility] 12/02/2023 16:05:20 4 17665: Hot or Cold Pack completed Socorro Gómez, PT [address], [place], [address], [facility] 12/02/2023 16:05:20 4 56726: Manual therapy completed Socorro Gómez, PT [address], [place], [address], [facility] 12/02/2023 16:05:20 4 35868 Therapeutic Exercise (1:1) completed Socorro Gómez, PT [address], [place], [address], [facility] 11/27/2023 15:22:41 4 96754: Hot or Cold Pack completed Socorro Gómez, PT [address], [place], [address], [facility] 11/27/2023 15:33:58 4 41950: Manual therapy completed Socorro Gómez, PT [address], [place], [address], [facility] 11/27/2023 15:33:45 4 93601 Therapeutic Exercise (1:1) completed Socorro Gómez, PT [address], [place], [address], [facility] 11/24/2023 11:52:15 4 38157: Low complexity PT Eval completed Socorro Gómez, PT [address], [place], [address], [facility] 11/24/2023 11:52:17 4 99251 Therapeutic Exercise (1:1) completed Socorro Gómez, PT [address], [place], [address], [facility] 10/09/2023 16:48:25 4 78914: Manual therapy completed Socorro Gómez, PT [address], [place], [address], [facility] 10/09/2023 16:48:25 4 99489 Therapeutic Exercise (1:1) completed Socorro Gómez, PT [address], [place], [address], [facility] 10/07/2023 16:54:41 4 80400: Manual therapy completed Socorro Gómez, PT [address], [place], [address], [facility] 10/07/2023 16:54:41 4 35998 Therapeutic Exercise (1:1) completed Socorro Gómez, PT [address], [place], [address], [facility] 10/02/2023 16:30:54 4 41243: Manual therapy completed Socorro Gómez, PT [address], [place], [address], [facility] 10/02/2023 16:30:54 4 47526 Therapeutic Exercise (1:1) completed Socorro Gómez, PT [address], [place], [address], [facility] 09/25/2023 16:22:26 4 05674: Manual therapy completed Socorro Gómez, PT [address], [place], [address], [facility] 09/25/2023 16:22:26 4 44651 Therapeutic Exercise (1:1) completed Aida Olivas, DETENTION SERGEANT [address], [place], [address], [facility] 09/23/2023 17:10:25 4 55350: Manual therapy completed Aida Olivas, DETENTION SERGEANT [address], [place], [address], [facility] 09/23/2023 17:10:32 4 28819 Therapeutic Exercise (1:1) completed Socorro Gómez, PT [address], [place], [address], [facility] 09/18/2023 13:55:00 4 68627: Low complexity PT Eval completed Socorro Gómez, PT [address], [place], [address], [facility] 09/18/2023 13:55:04 4 Sports Shoulder completed Augustina Villalobos PA-C [address], [place], [address], [facility] 06/23/2023 12:50:55 Imaging Results None recorded. Procedure [...] Updated DateTime 06/01/2024 162.56 cm 20.6 kg/m2 84084.08 g EDUARD CRUZ [facility] 06/01/2024 10:38:06 Social History Question Answer Notes LastModified by [employer] Details LastModified Time Tobacco Smoking Status Never Smoker EDUARD rdz [facility] 10/14/2023 15:52:21 Which Of Your Hands Is Dominant? Right [email or web address] Information not available 11/26/2023 What Is Your Relationship Status? Single [email or web address] Information not available 10/14/2023 Sex: Unknown Functional Status Question Answer Note LastModified by [employer] Details LastModified Time How many times per week do you consume alcohol? Less than 1 time per week Information not available 10/14/2023 Do you use any illicit or recreational drugs? No [email or web address] Information not available 10/14/2023 Do you or have you ever used any other forms of tobacco or nicotine? No [email or web address] Information not available 10/14/2023 Do you or have you ever used e-cigarettes or vape? Never used electronic cigarettes [email or web address] Information not available 10/14/2023 Mental Status None recorded. Family History Nothing Reported. Medical History Condition Response Thyroid Problems Y Asthma Y Gynecological HistoryNo gynecological history recorded. Obstetrics History GPAL:G 0 P 0 0 0 0 Past Encounters Encounter ID Performer Location Encounter Start Date Encounter Closed Date Diagnosis/Indication Diagnosis SNOMED-CT Code Diagnosis ICD10 Code Diagnosis IMO Codes Diagnosis Note [id number] Augustina Villalobos PA-C [facility] 2nd floor [address] [facility] [address] 06/23/2023 09:54:12 07/11/2023 05:59:50 Pain of right shoulder joint 6463370404 0314918 M25.511 Impingemen t syndrome of right shoulder region 2433734777 53543 M75.41 [id number] Augustina Villalobos PA-C [facility] 2nd floor [address] [place] [address] 09/02/2023 15:34:12 09/22/2023 09:04:41 Anterior to posterior tear of superior glenoid labrum of right shoulder 7662356124 8110389 S43.431A Impingemen t syndrome of right shoulder region 0357974679 15628 M75.41 [id number] Socorro Gómez PT [facility] [address] [place] [address] 09/18/2023 11:45:52 09/18/2023 13:03:54 Anterior to posterior tear of superior glenoid labrum of right shoulder 3083196119 2869387 S43.431D [id number] Aida Olivas DETENTION SERGEANT [facility] [address] [place] [address] 09/23/2023 16:25:27 09/23/2023 17:24:17 Anterior to posterior tear of superior glenoid labrum of right shoulder 4169995455 1690391 S43.431D [id number] Socorro Gómez PT [facility] [address] [place] [address] 09/25/2023 16:14:13 09/25/2023 17:33:15 Anterior to posterior tear of superior glenoid labrum of right shoulder 7223101727 4068687 S43.431D [id number] Socorro Gómez PT [facility] [address] [place] [address] 10/02/2023 16:16:26 10/02/2023 17:21:13 Anterior to posterior tear of superior glenoid labrum of right shoulder 9288209281 3283976 S43.431D [id number] Socorro Rico, PT [facility] [address] [place] [address] 10/07/2023 16:14:49 10/07/2023 18:06:29 Anterior to posterior tear of superior glenoid labrum of right shoulder 2617679582 3698604 S43.431D [id number] Socorro Rico, PT [facility] [address] [place] [address] 10/09/2023 16:13:26 10/09/2023 17:25:28 Anterior to posterior tear of superior glenoid labrum of right shoulder 5985794266 4203033 S43.431D [id number] MD [facility] 2nd floor [address] [place] [address] 10/14/2023 15:46:34 11/11/2023 09:14:26 Rupture of rotator cuff of right shoulder 4720954925 5911161 M75.101 Partial th ickness rotator cuff tear 486695396 M75.101 Impingemen t syndrome of right shoulder region 3365165405 27531 M75.41 [id number] Socorro Gómez, PT [facility] [address] [place] [address] 11/24/2023 09:51:51 11/24/2023 10:57:45 Rupture of rotator cuff of right shoulder 6493677709 6143794 M75.448 [id number] TOOTIE Mckenna 3rd floor [address] [place] [address] 11/26/2023 12:56:46 12/11/2023 14:38:53 Postoperative care [id number] Z48.89 [id number] Socorro Gómez, PT [facility] [address] [place] [address] 11/27/2023 15:18:10 11/27/2023 16:30:23 Rupture of rotator cuff of right shoulder [id number] M75.975 [id number] Socorro Rico, PT [facility] 1 [facility] [place] [place] [address] 12/02/2023 15:56:11 12/02/2023 16:40:50 Rupture of rotator cuff of right shoulder [id number] M75.261 [id number] Socorro Rico, PT [facility] 1 [facility] [place] [place] [address] 12/04/2023 15:49:51 12/04/2023 16:47:43 Rupture of rotator cuff of right shoulder [id number] M75.982 [id number] Aida Olivas, DETENTION SERGEANT [facility] 1 [place] [address] 12/09/2023 15:53:02 12/09/2023 16:53:13 Rupture of rotator cuff of right shoulder [id number] M75.166 [id number] Aida Olivas, DETENTION SERGEANT [facility] 1 [place] [address] 12/11/2023 15:46:55 12/11/2023 16:46:26 Rupture of rotator cuff of right shoulder [id number] [id number] M75.654 [id number] Aida Olivas, DETENTION SERGEANT [facility] 1 [place] [address] 12/16/2023 15:53:25 12/16/2023 17:09:07 Rupture of rotator cuff of right shoulder 2652135593 [id number] M75.267 [id number] Aida Olivas, DETENTION SERGEANT [facility] 1 [place] [address] 12/18/2023 15:45:35 12/18/2023 16:52:32 Rupture of rotator cuff of right shoulder [id number] M75.065 [id number] Socorro Gómez, PT [facility] [address] [place] [address] 12/23/2023 15:52:43 12/23/2023 17:01:26 Rupture of rotator cuff of right shoulder [id number] M75.153 [id number] Aida Olivas, DETENTION SERGEANT [facility] 1 [facility] [place] [address] 12/25/2023 15:49:26 12/25/2023 17:05:58 Rupture of rotator cuff of right shoulder [id number] M75.438 [id number] Aida Brendon, DETENTION SERGEANT [facility] [address] [place] [address] 12/30/2023 15:48:13 12/30/2023 16:41:08 Rupture of rotator cuff of right shoulder [id number] M75.794 [id number] Aida Brendon, DETENTION SERGEANT [facility] [address] [place] [address] 01/01/2024 15:53:52 01/01/2024 17:12:27 Rupture of rotator cuff of right shoulder [id number] M75.273 [id number] Aida Brendon, DETENTION SERGEANT [facility] [address] [place] [address] 01/06/2024 15:51:23 01/06/2024 17:10:13 Rupture of rotator cuff of right shoulder 2409834445 [id number] M75.999 [id number] Aida Brendon, DETENTION SERGEANT [facility] [address] [place] [address] 01/08/2024 15:48:00 01/08/2024 17:07:22 Rupture of rotator cuff of right shoulder [id number] M75.113 [id number] Aida Brendon, DETENTION SERGEANT [facility] [address] [place] [address] 01/13/2024 15:50:26 01/13/2024 16:56:57 Rupture of rotator cuff of right shoulder [id number] M75.162 [id number] MD Lamont [facility] 2nd floor [address] [place] [address] 01/15/2024 12:56:25 02/11/2024 08:26:50 Full thickness rotator cuff tear [id number] M75.121 [id number] Surgical follow-up 34883 4000 Z48.89 [id number] Aidasa Olivas, DETENTION SERGEANT [facility] [address] [place] [address] 01/15/2024 15:51:21 01/15/2024 17:04:18 Rupture of rotator cuff of right shoulder 8670293434 [id number] M75.216 [id number] Socorro Gómez, PT [facility] [address] [place] [address] 01/20/2024 15:49:18 01/20/2024 16:53:00 Rupture of rotator cuff of right shoulder 4208850171 [id number] M75.701 [id number] Socorro Gómez, PT [facility] [address] [place] [address] 02/12/2024 15:20:46 02/12/2024 17:04:36 Rupture of rotator cuff of right shoulder 3969745442 [id number] M75.444 [id number] Aida Brendon, DETENTION SERGEANT [facility] - [facility] [address] [place] [address] 02/26/2024 15:55:18 02/26/2024 17:44:54 Rupture of rotator cuff of right shoulder 7803070127 [id number] M75.971 [id number] Socorro Gómez, PT [facility] - [facility] [address] [place] [address] 03/02/2024 15:47:41 03/02/2024 17:08:51 Rupture of rotator cuff of right shoulder 1179840306 [id number] M75.256 [id number] Socorro Gómez, PT [facility] - [facility] [address] [place] [address] 03/09/2024 14:53:26 03/09/2024 15:48:43 Rupture of rotator cuff of right shoulder [id number] M75.111 [id number] Socorro Gómez, PT [facility] - [facility] [address] [place] [address] 03/11/2024 15:50:31 03/11/2024 17:25:59 Rupture of rotator cuff of right shoulder [id number] M75.459 [id number] TOOTIE Clark 3rd floor [address] [place] [address] 03/16/2024 10:08:51 03/26/2024 13:08:18 Pain of right shoulder joint 1033823936 [id number] M25.511 771353 Postoperative visit 1836 00154 Z48.89 [id number] Impingemen t syndrome of right shoulder region [id number] 54048 M75.41 [id number] Osteoarthr itis of joint of right shoulder region [id number] 65108 M19.066 [id number] Socorro Gómez, PT [facility] - [facility] [address] [place] [address] 03/18/2024 11:52:41 03/18/2024 13:19:39 Rupture of rotator cuff of right shoulder 6087321183 [id number] M75.352 [id number] Socorro Gómez, PT [facility] - [facility] 1 [place] [address] 03/30/2024 16:20:23 03/30/2024 17:17:39 Rupture of rotator cuff of right shoulder 2685327491 [id number] M75.718 [id number] Aida Olivas, DETENTION SERGEANT [facility] - [facility] 1 [place] [address] 04/02/2024 14:53:27 04/02/2024 15:56:47 Rupture of rotator cuff of right shoulder 2547589882 [id number] M75.129 [id number] Rachel hopkins, DETENTION SERGEANT [facility] - [facility] [address] [place] [address] 04/06/2024 12:52:11 04/06/2024 13:43:45 Rupture of rotator cuff of right shoulder 4124768813 [id number] M75.575 [id number] Socorro Gómez, PT [facility] - [facility] [address] [place] [address] 04/08/2024 15:22:52 04/08/2024 16:01:16 Rupture of rotator cuff of right shoulder 8438624281 [id number] M75.221 [id number] MD DONNA Sol[facility] 2nd floor [address] [place] [address] 06/01/2024 10:22:49 06/11/2024 09:05:55 Surgical follow-up [id number] Z48.89 [id number] Health Concerns Section Related Observation LastModified by Organization Detai ls LastModified Time None Recorded Concern Status LastModified by Organization Details LastModified Time None Recorded Advance Directives Directive None Recorded Payers Insurance Date Sequence Insurance Name Policy Number Policy Guerra Covered Member ID Guerra Member ID Guarantor Name 06/11/2024 1 [facility] [employer] - DIRECT CONNECTORCARE TYPE I (HMO) [id number] Caity Coppola [id number] Caity Coppola Notes Date Note Type Note Provider Name and Address Organization Details Recorded Time 03/30/2024 text/html cortisone injection seems to have helped. decrease shoulder pain and increased shoulder ROM. Socorro Gómez, PT [address], [place], [address], [facility] 03/30/2024 18:32:11 04/02/2024 text/html Pt reports the shoulder is moving more but feels like progress has plateaued Aida Olivas, DETENTION SERGEANT [address], [place], [address], [facility] 04/02/2024 16:14:02 04/06/2024 text/html Pt reports sh has been less sore since getting cortisone shot. Rachel Elena, DETENTION SERGEANT [address], [place], [address], [facility] 04/06/2024 13:56:38 04/08/2024 text/html still feels improved overall since cortisone injection. I just wish my shoulder was back to pre surgery and pre injury good. Socorro Gómez, PT [address], [place], [address], [facility] 04/08/2024 16:11:26 OBGyn Episode No OBEpisode recorded.
--- OUTSIDE RECORDS SUMMARY | 2025-01-04 11:58 | XMS_ITS | Encounter Summary ---
Author Organization [facility] Address [address] [place] [address] [place] [address] Phone Care Team Providers Care Contact Officer Name Role Phone Pcp, Not Required Primary Care Provider Blanca Fish MD Primary Care Provider [phone] Encounter Details Date Type Department Care Team (Late st Contact Info) Description 06/09/2022 Ophth Exam [facility] [address] [place] [address] Kenneth Azul MD [address] [place] [address] [email or web address] Social History Tobacco Use Types Packs/Day Years [...] 4:00 PM Luis Daniel Sutherland RN * Garza Suicide Severity Rating Scale (Screener/Recent Self-Report) Question [...] on filedocumented in this encounter Care Teams Contact Officer Relationship Specialty Start Date End Date Pcp, Not Required [address] [place] [address] PCP - General 06/09/22 12/16/22 Blanca Olmstead MD [address] [place] [address] PCP - General Family Medicine 12/17/22 documented as of this encounter Additional Source Comments The information contained in this document represents components of the legal health record. It is not the complete legal health record.[facility]
--- OUTSIDE RECORDS SUMMARY | 2025-01-04 11:58 | XMS_ITS | Encounter Summary ---
Author Organization [employer] Address [address] [facility] 7 [place] [address] Care Team Providers Care Assistant Teaching Professor Name Role Phone Blanca Olmstead MD Primary Care Provider [phone] Encounter Details Date Type Department Care Team ([facility] st Contact Info) Description 01/20/2024 Orders Only [facility] CH[facility] MED & PEDS [address] [place] [address] Jennifer Alejandro MD [address] [place] [address] Inverse psoriasis (Primary Dx) Social History Tobacco [...] documented as of this encounter Care Teams Assistant Teaching Professor Relationship Specialty Start Date End Date Blanca Olmstead MD [address] [place] [address] PCP - General Family Medicine 08/29/21 documented as of this encounter
--- OUTSIDE RECORDS SUMMARY | 2025-01-04 11:58 | XMS_ITS | Encounter Summary ---
Author Organization [employer] Address [address] [place] [address] 7 [place] [address] Care Team Providers Care Sales And Service Agent Name Role Phone Blanca Olmstead MD Primary Care Provider [phone] Reason for Visit * Reason Onset Date Comments Med Refill 10/31/2022 Encounter Details Date Type Department Care Team ([facility] st Contact Info) Description 10/31/2022 Telephone [facility] MED & PEDS [address] [place] [address] Blanca Olmstead MD [address] [place] [address] Med Refill Social History Tobacco Use Types [...] 9:51 AM EDT Medication was sent to [id number] on 09/30/22 #45 with 1 refill. [...] documented as of this encounter Care Teams Sales And Service Agent Relationship Specialty Start Date End Date Blanca Olmstead MD [address] [place] [address] PCP - General Family Medicine 08/29/21 documented as of this encounter
--- OUTSIDE RECORDS SUMMARY | 2025-01-04 11:58 | XMS_ITS | Clinical Summary ---
Author Organization [employer] Address [address] [facility] 7 [place] [address] Care Team Providers Care Land Leasing Examiner Name Role Phone Blanca Olmstead MD Primary Care Provider Allergies Active Allergy Reactions Criticality Noted Date [...] patient will want second opinion, will send [facility] Hemorrhoids 02/21/2023 Assessment & Plan (02/27/2023 10:22 [...] daily of risedronate daily and refer to office lead. If no improvement or recurrent of symptoms [...] Type Department Care Team Description 12/21/2024 Refill [facility] MED & PEDS [address] [place] [address] Blanca Olmstead MD from Last 3 Months Immunizations Immunization Administration [...] PCV) 08/05/2013 08/05/2012, 07/25/1995 Mammogram 10/08/2022 10/08/2021, 04, 03/09/2013, Additional history exists SDOH Screening 06/08/2023 06/07/2022 Depression Monitoring 08/29/2024 03/01/2024, 025 COVID-19 Vaccine (1 - season) 2024 Influenza Vaccine (#1) 2024 [...] Procedure Name Priority Date/Time Associated Diagnosis Comments BI MAMMOGRAM SCREENING BILATERAL Routine 10/08/2021 THINPREP IMAGING PAP AND HPV MRNA E6/E7, WITH CT/NG, TRICHOMONAS Routine 09/25/2021 3:47 PM EDT PAP SMEAR Routine 09/25/2021 12:00 AM EDT from Last 3 Months or Most Recently Relevant to Health Maintenance Results * BI Mammogram Screening Bilateral (10/08/2021) Anatomical Region Laterality Modality Breast Bilateral Mammography 10/08/2021 Narrative 02/26/2022 4:14 PM EST BI-RADS 2 (10/08/21) us Historical Provider MD HARKINS BI PROCEDURES Final R esult * THINPREP TIS PAP AND HPV mRNA E6/E7, CT/NG, TRICH (09/25/2021 3:47 PM EDT) Chlamydia trachomatis RNA, TMA, Urogenital NOT DETECTED NOT DETECTED [facility] Clinical Information: None given [facility] COMMENT SEE COMMENT [facility] Comment: The analytical performance characteristics of this assay, when used to test SurePath(TM) specimens have been determined by [employer]. The modifications have not been cleared or approved by the FDA. This assay has been validated pursuant to the CLIA regulations and is used for clinical purposes. For additional information, please refer to https://education.[employer]/faq/JML951 (This link is being provided for information/ [...] has been evaluated with computer assisted technology. [facility] Perfect Bind Machine Operator: SEE COMMENT [facility] Comment: HECTOR GARCIA(ASCP) CT screening location: [address] [address] HPV nRNA E6/E7 Not Detected Not Detected [facility] Comment: Methodology: Plywood And Veneer Repairer-Mediated Amplification This assay detects E6/E7 viral messenger RNA (mRNA) from 14 high-risk HPV types (16,18,31,33,35,39,45,51,52,56,58,59,66,68). Cervical sources are required for HPV testing. If a vaginal source from a patient who has had a total hysterectomy with removal of cervix was submitted, please contact the testing laboratory for alternative testing options. For additional information, please refer to http://Dónde.[employer]/faq/ALI803o0 (This link if provided for information/ educational purposes only.) Interpretation/Res ult: SEE COMMENT [facility] Comment: Negative for intraepithelial [...] TMA, PAP Vial NOT DETECTED NOT DETECTED [facility] Comment: The analytical performance characteristics of this assay have been determined by [employer]. The modifications have not been cleared or approved by the FDA. This assay has been validated pursuant to the CLIA regulations and is used for clinical purposes. For additional information, please refer to http://education.[employer]/ faq/Trichomonastma (This link is being provided for information/ educational purposes only.) 09/25/2021 3:47 PM EDT us Ni Major CNM LAB PATHOLOGY ORDERABLES Final Result [facility] [address] [place] [id number] * Pap Smear (09/25/2021 12:00 AM EDT) Swab us Historical Provider LAB CYTOLOGY ORDERABLES F inal Result EXTERNAL LAB from Last 3 Months or Most Recently Relevant to Health Maintenance Insurance [facility] Care Teams Land Leasing Examiner Relationship Specialty Start Date End Date Blanca Olmstead MD [address] [place] [address] PCP - General Family Medicine 08/29/21
--- OUTSIDE RECORDS SUMMARY | 2025-01-04 11:58 | XMS_ITS | Encounter Summary ---
Author Organization [employer] Address [address] [place] [address] 7 [place] [address] Care Team Providers Care Membership Sales Manager Name Role Phone Blanca Olmstead MD Primary Care Provider [phone] Reason for Visit * Reason Onset Date Comments Triage 07/24/2022 Encounter Details Date Type Department Care Team ([facility] st Contact Info) Description 07/24/2022 Telephone [facility] CHC MED & PEDS [address] [place] [address] Blanca Olmstead MD [address] [place] [address] Triage Social History Tobacco Use Types Packs/Day [...] documented as of this encounter Care Teams Membership Sales Manager Relationship Specialty Start Date End Date Blanca Olmstead MD [address] [place] [address] PCP - General Family Medicine 08/29/21 documented as of this encounter
--- OUTSIDE RECORDS SUMMARY | 2025-01-04 11:58 | XMS_ITS | Clinical Summary ---
Author Organization [facility] Address [address] [place] [address] Phone Care Team Providers Care Underground Mine Machinery Mechanic Name Role Phone Blanca Olmstead MD Primary Care Provider [phone] Allergies Active Allergy Reactions Criticality Noted Date [...] she will have to get from her sewing machine operator floorperson because I do not prescribe this or [...] EST) TSH 3.31 0.27 - 4.20 uIU/mL [facility] Blood 02/04/2023 9:43 AM EST 02/04/2023 9:47 AM EST Silverio Isidro DO LAB BLOOD BKR ORDERABLES Final R esult [facility] [address] [place] [address] from Last 3 Months or Most Recently Relevant to Health Maintenance Insurance CONNECTORCARE DIRECT CONNECTORCARE DIRECT CONNECTORCARE DIRECT CONNECTORCARE DIRECT CONNECTORCARE DIRECT CONNECTORCARE DIRECT CONNECTORCARE DIRECT CONNECTORCARE DIRECT CONNECTORCARE DIRECT Care Teams Underground Mine Machinery Mechanic Relationship Specialty Start Date End Date Blanca Olmstead MD PCP - General Family Medicine 12/17/22 Additional Source Comments The information contained in this document represents components of the legal health record. It is not the complete legal health record.[facility]
--- OUTSIDE RECORDS SUMMARY | 2025-01-04 11:58 | XMS_ITS | Encounter Summary ---
Author Organization [employer] Address [address] [facility] 7 [place] [address] Care Team Providers Care Eating Disorder Specialist Name Role Phone Blanca Olmstead MD Primary Care Provider [phone] Encounter Details Date Type Department Care Team ([facility] st Contact Info) Description 04/08/2024 Orders Only [facility] MEDICINE [address] [place], [place] [phone] Dea Gilliam MD [address] [place] [address] Impingement syndrome of right shoulder region (Primary [...] documented as of this encounter Care Teams Eating Disorder Specialist Relationship Specialty Start Date End Date Blanca Olmstead MD [address] [place] [address] PCP - General Family Medicine 08/29/21 documented as of this encounter
--- OUTSIDE RECORDS SUMMARY | 2025-01-04 11:58 | XMS_ITS | Encounter Summary ---
Author Organization [employer] Address [address] [facility] 7 [place] [address] Care Team Providers Care Heating Systems Installer Name Role Phone Blanca Olmstead MD Primary Care Provider [phone] Reason for Visit * Reason Onset Date Comments Appointment Request 07/16/2023 Encounter Details Date Type Department Care Team ([facility] st Contact Info) Description 07/16/2023 Telephone [facility] MEDICINE [address] [place] [address] Blanca Olmstead MD [address] [place] [address] Appointment Request Social History Tobacco Use Types [...] documented as of this encounter Care Teams Heating Systems Installer Relationship Specialty Start Date End Date Blanca Olmstead MD [address] [place] [address] PCP - General Family Medicine 08/29/21 documented as of this encounter
== END 2025-01-04 10:56 | disposition home or self-care (01) ==
LOC: HO.ENCR 10:25
PROVIDERS: PCP Family Medicine; Visit Provider Internal Medicine Endocrinology, Diabetes & Metabolism
DX: M81.0 Age-related osteoporosis without current pathological fracture (principal); E03.9 Hypothyroidism, unspecified
CPT/HCPCS: 99213

== ENCOUNTER → 2025-01-04 10:24 | Outpatient (BNVA) | payer OTHER, SELFPAY | PROVIDERS: PCP Family Medicine; Visit Provider Internal Medicine Endocrinology, Diabetes & Metabolism | DX: M81.0 Age-related osteoporosis without current pathological fracture (principal); E03.9 Hypothyroidism, unspecified | CPT/HCPCS: 99212 ==